=== PATIENT | female | born 1955 | race American Indian/Alaskan Native ===

== ENCOUNTER 2018-08-13 15:41 | Inpatient (IN) | payer MEDICAID, OTHER ==
[2018-08-13] MEDS ORDERED: MORPHINE ONE (15:46)
[2018-08-13] MEDS ORDERED: NACL 0.9% 500 ML 500 ML IV ONE (15:46)
[2018-08-13] MEDS ORDERED: NACL 0.9% 500 ML 500 ML ONE (15:48)
[2018-08-13] MEDS ORDERED: CORDARONE IV ONE ×2 (15:54→17:41)
[2018-08-13] MEDS ORDERED: REGLAN IV ONE (15:54)
[2018-08-13] MEDS ORDERED: PLAVIX PO ONE (15:54)
[2018-08-13] MEDS ORDERED: SODIUM CHLORIDE FLUSH SYRINGE 10 ML IV PRN (15:59)
[2018-08-13] MEDS ORDERED: PROVENTIL IH PRN (15:59)
[2018-08-13] MEDS ORDERED: HEPARIN 10,000 UNITS/10 ML IV ONE (16:00)
[2018-08-13] MEDS ORDERED: HEPARIN/NS 5000 UNIT/500ML(CATH LAB) 1,000 ML IR ONE (16:05)
[2018-08-13] MEDS ORDERED: NITROGLYCERIN SYRINGE 0 ML ONE (16:06)
[2018-08-13] MEDS ORDERED: XYLOCAINE 2% INFILTRATI ONE (16:06)
--- NOTE | 2018-08-13 16:07 | History and Physical Report ---
History of Present Illness Chief complaint: chest pain History of present illness: 63 YO Female with Nicotine Dependence presents to ED for evaluation. Pt is lethargic at time of exam and unable to provide history. Pt history taken from ED staff. As per staff, EMS was notified for complaints of chest pain. Upon arrival, the patient was found to have Unstable Angina. A Code STEMI was called and the patient transported to [facility] for further care and evaluation. Pt seen and evaluated in ED and found to be in severe distress secondary to STEMI. Pt subsequently became unresponsive and was found to be in V-Fib arrest. Pt treated with ACLS protocol with return of perfusing cardiac rhythm. Cardiology team notified, and patient taken urgently to [facility] for intervention. Pulmonary team consulted in ED, and the patient is admitted to ICU, and placed on heparin drip. Past History Past Medical History: other (Nicotine Dependence) Past Surgical History: No surgical history, Other (reviewed) Social history: , smoking Family history: no significant family history (reviewed) Medications and Allergies Allergies Allergy/AdvReac Type Severity Reaction Status Date / Time No Known Allergies Allergy Verified 10/23/15 17:38 Active Meds: Active Medications Albuterol (Proventil) 2.5 mg IH Q3HRT PRN PRN Reason: Shortness Of Breath Heparin Sodium/Sodium Chloride (Heparin/ 0.45% Nacl-25,000 Unit/500 Ml) 25,000 unit in 500 mls @ 0 mls/hr IV TITRATE ARNOLDO; Protocol Sodium Chloride (Nacl 0.9% 500 Ml) 500 mls @ 999 mls/hr IV BOLUS ONE Stop: 08/13/18 16:16 Amiodarone HCl 900 mg/ (Dextrose) 500 mls @ 33.33 mls/hr IV DIRECT ARNOLDO; Protocol Review of Systems ROS unobtainable: due to mental status Exam - Constitutional General appearance: Present: severe distress - EENT Eyes: Present: PERRL, miosis ENT: hearing intact, clear oral mucosa - Neck Neck: Present: supple, normal ROM - Respiratory Respiratory effort: normal, labored Respiratory: bilateral: diminished, rhonchi - Cardiovascular Rhythm: other (tachycardia) Heart Sounds: Present: S1 & S2. Absent: rub, click - Extremities Extremities: pulses symmetrical, No edema Peripheral Pulses: within normal limits - Abdominal General gastrointestinal: Present: soft, non-tender, non-distended, normal bowel sounds Female genitourinary: Present: normal - Integumentary Integumentary: Present: clear, warm, dry - Musculoskeletal Musculoskeletal: generalized weakness - Psychiatric Psychiatric: no appropriate mood/affect, no intact judgment & insight, no memory intact - Neurologic Neurologic: CNII-XII intact, no focal deficits, moves all extremities, no gait normal Results - Labs CBC & Chem 7: 08/13/18 Unknown Assessment and Plan - Patient Problems (1) STEMI (ST elevation myocardial infarction) Status: Acute Qualifiers: Involved coronary artery: other coronary artery Qualified Code(s): I21.29 - ST elevation (STEMI) myocardial infarction involving other sites Plan to address problem: Admit to ICU, Cardiology consulted in ED, serial cardiac enzymes, EKG, telemetry, heparin drip, lipid panel, statin. Pt taken urgently to flue dust laborer for intervention. The high probability of a clinically significant, sudden or life threatening deterioration of the [cardiac,neuro, respiratory] system(s) required my full and direct attention, intervention and personal management. The aggregate critical care time was [65] minutes. This time is in addition to time spent performing reported procedures but includes the following: [x] Data Review and interpretation [x] Patient assessment and monitoring of vital signs [x] Documentation [x] Medication orders and management (2) Cardiac arrest Status: Acute Plan to address problem: Pt treated IAW ACLS protocol, with return of perfusion cardiac rhythm. Cardiology consulted in ED. (3) Encephalopathy Status: Acute Plan to address problem: S/P cardiac arrest, neuro checks, treat stemi, aspiration precautions, fall precautions. (4) Nicotine dependence Status: Acute Qualifiers: Nicotine product type: cigarettes Substance use status: uncomplicated Qualified Code(s): F17.210 - Nicotine dependence, cigarettes, uncomplicated Plan to address problem: Smoking cessation counseling, supportive care. (5) DVT prophylaxis Status: Acute Plan to address problem: SCD to BLE while in bed.
[2018-08-13 16:10] LABS: Hematocrit 38.7 % (30.3-42.9); Hemoglobin 13.3 gm/dl (10.1-14.3); Mean Corpuscular HGB Conc 34 % (30-34); Mean Corpuscular Volume 97 fl (79-97); Platelet Count 288 K/mm3 (140-440); Red Blood Count 3.98 M/mm3 (3.65-5.03); Red Cell Distribution Width 14.4 % (13.2-15.2)
--- NOTE | 2018-08-13 16:16 | Emergency Department Report ---
ED General Adult HPI - General Chief complaint: Chest Pain Stated complaint: POSS STEMI Time Seen by Provider: 08/13/18 15:46 Source: patient, EMS (ems notes not available at time of chart dictation. Verbal report received from EMS), RN notes reviewed Mode of arrival: Stretcher Limitations: Physical Limitation - History of Present Illness Initial comments: This is a 60-year-old female who is brought to the hospital by emergency medical services as a possible code STEMI. Her prehospital EKG was reviewed by myself, and transmitted to the ditching machine operator, Dr. Mix, at 3:30 PM, and we both agreed to activate the catheterization lab for presumed emergency STEMI. Upon arrival to the emergency room, the patient is complaining of chest pain which started early once a day, nausea, diaphoresis and vomiting. The patient denies cocaine use, and denies DVT, pulmonary embolus risk factors. Pain is constant, and doesn't radiate anywhere, and does not appear to have exacerbating or relieving factors. EMS gave aspirin in the field. In the emergency room, while undergoing her primary survey, the patient's rhythm spontaneously converted to ventricular fibrillation, and she was shocked once, with 200 J, and had chest compressions. Patient was pulseless for approximately 10-15 seconds. After the aforementioned interventions, the patient reverted to a normal sinus rhythm, with a repeat EKG that suggested ST elevation myocardial infarction. Discussed this with her covering hospital admitting clerk, Dr. Mix, who recommended amiodarone infusion, push, heparin post, infusion, and Plavix load. Hospital physician, Dr. Louise will admit the patient to the medical service, and discussed the case with the press worker helper, Dr. Smith, who agrees with triage into the intensive care unit. I discussed this with the patient who verbalizes understanding. -: Sudden Location: chest Radiation: non-radiation Quality: burning, stabbing, aching Consistency: constant Improves with: other Worsens with: other Associated Symptoms: chest pain, nausea/vomiting, weakness - Related Data Allergies Allergy/AdvReac Type Severity Reaction Status Date / Time No Known Allergies Allergy Verified 10/23/15 17:38 ED Review of Systems ROS: Stated complaint: POSS STEMI Other details as noted in HPI Constitutional: diaphoresis, malaise Eyes: denies: vision change ENT: denies: epistaxis Respiratory: denies: cough Cardiovascular: chest pain Gastrointestinal: nausea, vomiting Genitourinary: denies: dysuria Musculoskeletal: denies: back pain Skin: denies: lesions Neurological: weakness Psychiatric: anxiety ED Past Medical Hx - Surgical History Additional Surgical History: HYSTERECTOMY - Social History Smoking Status: Current Every Day Smoker Substance Use Type: None ED Physical Exam - General General appearance: alert, anxious, in distress - Head Head exam: Present: atraumatic, normocephalic - Eye Eye exam: Present: normal appearance, EOMI. Absent: nystagmus - ENT ENT exam: Present: normal exam, normal orophraynx, mucous membranes moist, normal external ear exam - Neck Neck exam: Present: normal inspection, full ROM. Absent: tenderness, meningismus - Respiratory Respiratory exam: Present: normal lung sounds bilaterally. Absent: respiratory distress - Cardiovascular Cardiovascular Exam: Present: regular rate, normal rhythm, normal heart sounds. Absent: bradycardia, tachycardia, irregular rhythm, systolic murmur, diastolic murmur, rubs, gallop - GI/Abdominal GI/Abdominal exam: Present: soft. Absent: distended, tenderness, guarding, rebound, rigid, pulsatile mass - Extremities Exam Extremities exam: Present: normal inspection, full ROM, other (2+ pulses noted in the bilateral upper, lower extremities. Compartments soft. No long bony tenderness. The pelvis is stable.). Absent: calf tenderness - Back Exam Back exam: Present: normal inspection, full ROM. Absent: tenderness, CVA tenderness (R), paraspinal tenderness, vertebral tenderness - Neurological Exam Neurological exam: Present: alert, oriented X3, CN II-XII intact, other (Extraocular movements intact. Tongue midline. No facial droop. Facial sensation intact to light touch in the V1, V2, V3 distribution bilaterally. 5 and 5 strength in 4 extremities.. Sensation is intact to light touch in 4 extremities.). Absent: motor sensory deficit - Psychiatric Psychiatric exam: Present: anxious - Skin Skin exam: Present: warm, dry, intact, normal color. Absent: rash ED Medical Decision Making - Lab Data Lab Results 08/13/18 Range/Units Unknown WBC 7.9 (4.5-11.0) K/mm3 RBC 3.98 (3.65-5.03) M/mm3 Hgb 13.3 (10.1-14.3) gm/dl Hct 38.7 (30.3-42.9) % MCV 97 (79-97) fl MCH 33 H (28-32) pg MCHC 34 (30-34) % RDW 14.4 (13.2-15.2) % Plt Count 288 (140-440) K/mm3 Lymph % (Auto) Business Info Consultant Lymph # Business Info Consultant Seg Neutrophils % Business Info Consultant Heart rate currently 66 bpm. Blood pressure 120/70. Saturating at 97% on 2 L of oxygen. Respiratory rate 15-17 breaths per minute Tactile sensation does not appear to be consistent with fever - EKG Data -: EKG Interpreted by Me EKG shows normal: sinus rhythm - EKG Data Interpretation: acute MT 08/13/18 16:16 Sinus rhythm, 66 bpm, normal axis, QTC 399 ms, premature atrial contractions, premature ventricular contractions, ST elevation in the inferior leads, ST depre ssion 1, aVL, consistent with ST elevation myocardial infarction, in the inferior distribution. - Radiology Data Radiology results: image reviewed interpreted by me: X-ray of the chest shows hyperinflated lungs, otherwise no acute disease Critical Care Time: Yes Critical care time in (mins) excluding proc time.: 35 Critical care attestation.: If time is entered above; I have spent that time in minutes in the direct care of this critically ill patient, excluding procedure time. ED Disposition Clinical Impression: STEMI (ST elevation myocardial infarction) Qualifiers: Involved coronary artery: other coronary artery Qualified Code(s): I21.29 - ST elevation (STEMI) myocardial infarction involving other sites Disposition: DC-09 OP ADMIT IP TO THIS HOSP Is pt being admited?: Yes Condition: Critical
[2018-08-13 16:20] LABS: INR 0.87 (0.87-1.13)
[2018-08-13 16:21] LABS: Partial Thromboplastin Time 22.3 Sec. (24.2-36.6)
[2018-08-13] MEDS ORDERED: NACL 0.9% 1000 ML 1,000 ML ONE (16:21)
[2018-08-13] MEDS ORDERED: SUBLIMAZE ONE (16:21)
[2018-08-13] MEDS ORDERED: ZOFRAN ONE (16:21)
[2018-08-13] MEDS: HEPARIN 10,000 UNITS/10 ML ONE ×2 (16:22→16:34)
[2018-08-13 16:28] LABS: BUN/Creatinine Ratio 11; Blood Urea Nitrogen 10 mg/dL (7-17); Calcium 9.4 mg/dL (8.4-10.2); Creatine Kinase MB 1.8 ng/mL (0.0-4.0); Hemolysis Index 19
[2018-08-13] MEDS: CORDARONE 900 MG in D5W 482 ML IV SCH ×2 (16:29→21:55)
[2018-08-13] MEDS ORDERED: HEPARIN/NS 5000 UNIT/500ML(CATH LAB) 500 ML IR ONE (16:33)
[2018-08-13] MEDS ORDERED: INTROPIN DRIP 800 MG/D5W 250 ML 800 MG/250 ML BAG IV ONE (16:35)
--- NOTE | 2018-08-13 16:41 | XRay Report ---
FINAL REPORT EXAM: XR CHEST 1V AP HISTORY: chest pain TECHNIQUE: Frontal chest x-ray. PRIORS: None currently available. FINDINGS: Cardiac silhouette is within normal limits. There is no effusion. There is no pneumothorax. There is no consolidation. There are no suspicious osseous lesions. Scoliosis. IMPRESSION: No acute cardiopulmonary findings.
[2018-08-13] MEDS ORDERED: HEPARIN/ 0.45% NACL-25,000 UNIT/500 ML 25,000 UNIT/500 ML BAG IV SCH (17:00)
[2018-08-13 17:18] LABS: Anisocytosis 1+; Basophils % (Manual) 0 % (0.0-1.8); Macrocytosis 1+; Total Cells Counted 100
[2018-08-13 17:19] LABS: Platelet Estimate Consistent w Auto
[2018-08-13] MEDS ORDERED: ALUM-MAG HYDROX-SIMETH 200-200-20MG/5ML ONE (17:19)
[2018-08-13] MEDS ORDERED: PLAVIX ONE (17:19)
[2018-08-13] MEDS ORDERED: AGGRASTAT DRIP (12.5 MG/250 ML) 12,500 MCG/250 ML BAG IV ONE (17:24)
[2018-08-13] MEDS ORDERED: HEPARIN 10,000 UNITS/10 ML ONE (17:24)
[2018-08-13] MEDS ORDERED: AGGRASTAT DRIP (12.5 MG/250 ML) 12,500 MCG/250 ML BAG IV SCH (18:00)
[2018-08-13] MEDS ORDERED: NACL 0.9% 1000 ML 1,000 ML IV SCH (18:00)
[2018-08-13 19:16] LABS: Creatine Kinase MB 11.6 ng/mL (0.0-4.0)
--- NOTE | 2018-08-13 19:56 | Cardiac Catherization Report ---
CARDIAC CATHETERIZATION INDICATIONS FOR PROCEDURE: The patient is a 63-year-old -[place] female with history of tobacco abuse, who presents to the ER with chest pain, inferior ST elevation, had a VF cardiac arrest in the Emergency Room. This obviously delayed our STEMI protocol. She was successfully resuscitated, started on amiodarone. She was given aspirin. She is brought to the dental laboratory worker in an emergent fashion. Risks, benefits and alternatives were discussed at length. PROCEDURE IN DETAIL: The patient was brought to the catheterization dental laboratory worker in urgent fashion, prepped and draped in sterile fashion, 8 mL of 2% lidocaine was used to anesthetize the right groin. A 7-Scottish hydrophilic sheath was used to cannulate the right femoral vein. A standard 6-Scottish sheath was used to cannulate the right common femoral artery via modified Seldinger technique. She is bradycardic and hypotensive. A balloon tipped temporary venous pacemaker was placed under fluoroscopic guidance into the right ventricular apex, functioning normal. Next, we turned our attention to the left heart catheterization. A JL4 catheter was used to engage the left main. No dampening or ventricularization performed. Cineangiography performed in all projections. JR4 guide was used to cross the aortic valve under fluoroscopic guidance. Left ventriculography performed in 30 BYRNES and 30 PANAMANIAN projections via hand injections. Catheter flushed. Manual pullback performed with continuous pressure monitoring. Next, a JR4 sidehole guide was used to engage the right coronary, which is a small vessel. Angiography was performed in all projections. DATA: There is a left main without significant disease, bifurcates in left anterior descending and left circumflex. The circumflex is diminutive vessel, no significant disease. LAD is a moderate sized vessel, courses through the anterior interventricular groove. There is a 50% proximal and a 25% mid LAD stenosis. No significant stenosis in the diagonal system. Left ventriculography reveals inferior hypokinesis, but preserved ejection fraction of 60%-65%. Right coronary reveals 90% proximal stenosis, 99% distal stenosis, tandem, very small vessel, probably ____ vessel distally. At this time, returning to PCI, heparin given. Abnormal ACT confirmed. Aspirin has already been loaded. We used a [employer] wire to cross the lesion. A 2.0 x 12 balloon to predilate the lesion distally very calcific and complex, stent placed in the 99% distal stenosis. A very distal small dissection is noted. At this point, we turned our attention to the proximal lesion. We direct stented with a 2.5 x 12 [place]. The distal lesion was treated with a 2.25 x 18 Mak drug-eluting stent. This was performed and both stents are well expanded and well opposed. There remains a small distal dissection in the very distal RCA, very small vessel CHET 2 flow into the right posterolateral, CHET 3 flow into the posterior descending. At this point, the patient is clinically stable, chest pain free. STs are resolved. We will give an Aggrastat bolus and I did try to wire the back into the lumen with multiple wires, unable to do I believe the risk outweighs the benefit at this point. She is clinically stable and chest pain free. CONCLUSIONS: 1. Severe multilevel coronary artery disease in the setting of an acute inferior ST elevation myocardial infarction complicated by hypotension, bradycardia and fibrillation arrest. 2. Successful IVUS-guided PCI of 99% distal RCA, placement of Mak 2.25 x 18, excellent final angiographic results, successful PCI of proximal RCA placed in the [place] 2.5 x 12, excellent final angiographic result, very small vessel distally, small dissection. No evidence of perforation. CHET 3 flow is preserved. 4. Moderate nonobstructive disease in left system including 50% proximal and 25% mid left anterior descending. 5. Preserved left ventricular function, estimated 55%-60%. 6. Normal LVEDP. 7. Successful temporary venous pacemaker placement. 8. Successful access of the right femoral vein. At this point, the patient is clinically stable, chest pain free. Single bolus of Aggrastat, Plavix, aspirin, statin therapy, needs smoking cessation. We will keep the pacemaker in overnight. Again, she is chest pain free, electrically and hemodynamically stable, off dopamine, feeling much better. Continue amiodarone drip. Pull arterial sheath once ACT less than 170. We will follow along closely. Bottle And Glass Inspector consultation as well. ADDENDUM I directly supervised the administration of moderate sedation from 4:20 p.m. to 5:30 p.m. with fentanyl and Versed. JOB# [id number] SBM/NTS
[2018-08-13 20:20] LABS: Chol/HDL Ratio 5.92 %
[2018-08-13] MEDS: PEPCID IV SCH (21:46)
--- NOTE | 2018-08-13 23:05 | Consultation ---
REASON FOR CONSULTATION: Advice and opinion regarding chest pain. HISTORY OF PRESENT ILLNESS: The patient is a pleasant 63-year-old -[place]ones[place] female with history of tobacco abuse and hip pain, presents here with chest pain for some 1 hour or so. She was brought to the Emergency Room, had inferior ST elevation, had VF arrest in the Emergency Room, at least 30 minutes of critical care time. She was resuscitated, started on aspirin, heparin and amiodarone. She is alert, awake, following commands, nauseous, hypotensive, diaphoretic. PAST MEDICAL HISTORY: Unknown. PAST SURGICAL HISTORY: Unknown. The patient has not seen a primary doctor in some time. SOCIAL HISTORY: Positive for tobacco abuse, otherwise unknown. FAMILY HISTORY: Noncontributory. PHYSICAL EXAMINATION: VITAL SIGNS: Blood pressure is in the 100 range, heart rates in the 50s and sinus rhythm, O2 sats 99% on room air. GENERAL: This is a middle-aged -Gabonese female in no apparent distress, oriented x 3. HEENT: Sclerae are anicteric. NECK: Supple. No masses, no JVD. CHEST: Clear to auscultation bilaterally. Good air movement. CARDIOVASCULAR: Regular S1, S2. ABDOMEN: Soft, nontender, nondistended. Normoactive bowel sounds in 4 quadrants. No mass or bruits. EXTREMITIES: No cyanosis, clubbing, edema. Good peripheral pulses. SKIN: Intact. No rashes. DATA: EKG as aforementioned. VF arrest, inferior ST elevation prior to this. ASSESSMENT AND PLAN: In summary, the patient is a pleasant 63-year-old -[place]ones[place] female. Inferior ST elevation myocardial infarction complicated by bradycardia and hypotension. VF arrest. STEMI protocol initiated. Heparin, aspirin, amiodarone, Plavix initiated. Urgent cardiac catheterization. Further plans contingent on these results. JOB# [id number] SBM/NTS
[2018-08-13] MEDS: MORPHINE IV PRN (23:17)
[2018-08-14] MEDS: MORPHINE IV PRN ×2 (02:29→11:40)
[2018-08-14] MEDS: SODIUM CHLORIDE FLUSH SYRINGE 10 ML IV SCH ×3 (02:32→21:33)
[2018-08-14 06:12] LABS: Basophils % (Auto) 0.4 % (0.0-1.8); Eosinophils % (Auto) 0.1 % (0.0-4.3); Hematocrit 36.4 % (30.3-42.9); Hemoglobin 12.5 gm/dl (10.1-14.3); Lymphocytes % (Auto) 10.9 % (13.4-35.0); Mean Corpuscular HGB Conc 34 % (30-34); Mean Corpuscular Volume 97 fl (79-97); Monocytes # (Auto) 0.4 K/mm3 (0.0-0.8); Monocytes % (Auto) 4.4 % (0.0-7.3); Red Blood Count 3.75 M/mm3 (3.65-5.03); Red Cell Distribution Width 14.1 % (13.2-15.2)
[2018-08-14 06:18] LABS: Platelet Count 216 K/mm3 (140-440)
[2018-08-14 06:43] LABS: Creatine Kinase MB 90.6 ng/mL (0.0-4.0)
[2018-08-14 06:46] LABS: BUN/Creatinine Ratio 18; Blood Urea Nitrogen 9 mg/dL (7-17); Calcium 7.9 mg/dL (8.4-10.2); Hemolysis Index 164
[2018-08-14] MEDS ORDERED: ZOFRAN ONE (08:36)
[2018-08-14] MEDS: PLAVIX PO SCH ×2 (08:43→11:50)
[2018-08-14] MEDS: PEPCID IV SCH ×3 (08:44→21:33)
[2018-08-14] MEDS: ECOTRIN PO SCH ×2 (08:49→11:49)
--- NOTE | 2018-08-14 11:23 | Progress Note ---
Assessment and Plan 63yo AAF: 1. Acute inferior STEMI complicated by VF arrest/hypotension/bradycardia * s/p primary pci of prox and distal rca w yue * s/p temp venous pcm 2. Tobacco abuse 3. Right hip arthritis Clinically doing well. Plan: I removed the pcm and venous sheath this am cont w/ current meds (asa/plavix/statin) Bp/hr borderline - hold off on bb/leandro for now check tte Anticipate d/c in 1-2 days Smoking cessation discussed at length Talked to family - 1st degree relative screening recommended Thanks Subjective Date of service: 08/14/18 Interval history: feels great Objective Vital Signs Temp Pulse Pulse Resp Resp BP Pulse Ox 08/14/18 09:00 60 22 119/71 98 08/14/18 08:31 69 20 124/67 98 08/14/18 08:27 98 08/14/18 08:00 98.0 F 77 59 L 14 105/69 99 08/14/18 07:31 68 17 114/59 98 08/14/18 07:01 57 L 14 125/56 98 08/14/18 06:30 55 L 9 L 133/64 99 08/14/18 06:00 57 L 16 114/71 98 08/14/18 05:30 57 L 21 111/64 98 08/14/18 05:00 57 L 19 113/68 97 08/14/18 04:30 98.2 F 61 21 119/69 97 08/14/18 04:00 60 59 L 18 107/66 96 08/14/18 03:30 59 L 16 118/65 98 08/14/18 03:00 59 L 17 117/66 98 08/14/18 02:30 61 15 116/75 99 08/14/18 02:00 58 L 21 117/72 98 08/14/18 01:31 58 L 19 111/69 99 08/14/18 01:00 58 L 20 106/71 98 08/14/18 00:50 57 L 20 115/69 100 08/14/18 00:40 57 L 20 110/70 97 08/14/18 00:30 58 L 17 110/72 97 08/14/18 00:20 59 L 18 112/67 97 08/14/18 00:10 59 L 18 114/68 97 08/14/18 00:00 59 L 59 L 19 115/74 97 08/13/18 23:50 58 L 19 121/68 97 08/13/18 23:40 58 L 18 105/67 97 08/13/18 23:30 60 20 107/65 98 08/13/18 23:20 63 20 116/70 97 08/13/18 23:17 19 08/13/18 23:10 55 L 15 120/69 98 08/13/18 23:00 57 L 18 106/62 98 08/13/18 22:50 54 L 15 108/63 97 08/13/18 22:40 56 L 20 107/60 100 08/13/18 22:30 53 L 11 L 96/63 99 08/13/18 22:21 53 L 15 98/57 100 08/13/18 22:11 54 L 17 98/57 100 08/13/18 22:00 58 L 16 22 98/57 98 08/13/18 21:51 61 13 105/65 98 08/13/18 21:41 60 13 105/65 100 08/13/18 21:30 67 13 105/65 99 08/13/18 21:21 60 15 95/64 99 08/13/18 21:11 61 13 95/64 99 08/13/18 21:01 60 20 97 08/13/18 20:51 67 20 96 08/13/18 20:41 64 14 97 08/13/18 20:31 62 22 97 08/13/18 20:21 63 20 97 08/13/18 20:10 61 19 97 08/13/18 20:00 97.6 F 61 18 99 - Labs and Meds Cardiac Enzymes 08/13/18 08/13/18 08/13/18 Range/Units 18:34 21:45 Unknown CK-MB (CK-2) 11.6 H 35.0 H 1.8 (0.0-4.0) ng/mL 08/14/18 Range/Units 05:00 CK-MB (CK-2) 90.6 H (0.0-4.0) ng/mL Coagulation 08/13/18 Range/Units Unknown PT 12.4 (12.2-14.9) Sec. INR 0.87 (0.87-1.13) APTT 22.3 L (24.2-36.6) Sec. Lipids 08/13/18 Range/Units 18:34 Triglycerides 58 (2-149) mg/dL Cholesterol 231 H (50-199) mg/dL HDL Cholesterol 39 L (40-59) mg/dL Cholesterol/HDL Ratio 5.92 % CBC 08/13/18 08/14/18 Range/Units Unknown 05:00 WBC 7.9 9.1 (4.5-11.0) K/mm3 RBC 3.98 3.75 (3.65-5.03) M/mm3 Hgb 13.3 12.5 (10.1-14.3) gm/dl Hct 38.7 36.4 (30.3-42.9) % Plt Count 288 216 (140-440) K/mm3 Lymph # [facility] 1.0 L [place] # 0.4 (0.0-0.8) K/mm3 Eos # 0.0 (0.0-0.4) K/mm3 Baso # 0.0 (0.0-0.1) K/mm3 Comprehensive Metabolic Panel 08/13/18 08/14/18 Range/Units Unknown 05:00 Sodium 139 136 L (137-145) mmol/L Potassium 3.9 4.9 D (3.6-5.0) mmol/L Chloride 98.6 103.7 (98-107) mmol/L Carbon Dioxide 26 21 L (22-30) mmol/L BUN 10 9 (7-17) mg/dL Creatinine 0.9 0.5 L (0.7-1.2) mg/dL Glucose 119 H 129 H (65-100) mg/dL Calcium 9.4 7.9 L D (8.4-10.2) mg/dL
[2018-08-14] MEDS ORDERED: AFLURIA QUAD 2018-2019 SYRINGE IM ONE (12:00)
[2018-08-14] MEDS ORDERED: PNEUMOVAX 23 IM ONE (12:00)
[2018-08-14] MEDS: LIDODERM 5% TD SCH (12:14)
--- NOTE | 2018-08-14 12:19 | Progress Note ---
Assessment and Plan Assessment and plan: Patient is a 63 YO Female with Nicotine Dependence presents to ED for evaluation. Pt is lethargic at time of exam and unable to provide history. Pt history taken from ED staff. As per staff, EMS was notified for complaints of chest pain. Upon arrival, the patient was found to have Unstable Angina. A Code STEMI was called and the patient transported to [facility] for further care and evaluation. Pt seen and evaluated in ED and found to be in severe distress secondary to STEMI. Pt subsequently became unresponsive and was found to be in V-Fib arrest. Pt treated with ACLS protocol with return of perfusing cardiac rhythm. Cardiology team notified, and patient taken urgently to [facility] for intervention. Pulmonary team consulted in ED, and the patient is admitted to ICU, and placed on heparin drip. (1) STEMI (ST elevation myocardial infarction) Status: Acute Qualifiers: Involved coronary artery: other coronary artery Qualified Code(s): I21.29 - ST elevation (STEMI) myocardial infarction involving other sites Plan to address problem: S/P primary pci of prox and distal rca w yue PER cardiology Continue aggressive cardiac and risk modification management including tobacco u se and discussed with the patient in detail (2) Cardiac arrest Status: Acute Plan to address problem: Pt treated IAW ACLS protocol, with return of perfusion cardiac rhythm. Cardiology consulted in ED. (3) Bradycardia S/P PCM- removed todaY CONTINUE TO HOLD bb/leandro PER CARDIOLOGY TTE pending (4)Encephalopathy Status: Acute Plan to address problem: S/P cardiac arrest, neuro checks, treat stemi, aspiration precautions, fall precautions. (5) Nicotine dependence Status: Acute Qualifiers: Nicotine product type: cigarettes Substance use status: uncomplicated Qualified Code(s): F17.210 - Nicotine dependence, cigarettes, uncomplicated Plan to address problem: Smoking cessation counseling, supportive care. (6) DVT prophylaxis Status: Acute Plan to address problem: SCD to BLE while in bed. The high probability of a clinically significant, sudden or life threatening deterioration of the [cardiac,neuro, respiratory] system(s) required my full and direct attention, intervention and personal management. The aggregate critical care time was [65] minutes. This time is in addition to time spent performing reported procedures but includes the following: [x] Data Review and interpretation [x] Patient assessment and monitoring of vital signs [x] Documentation [x] Medication orders and management History Interval history: Patient seen and examined, doing well overnight following cardiac cath. Temporally pace maker removed Hospitalist Physical - Physical exam Narrative exam: VITAL SIGNS: Reviewed. GENERAL: The patient appeared well nourished and normally developed. Vital signs as documented. HEAD: No signs of head trauma. EYES: Pupils are equal. Extraocular motions intact. EARS: Hearing grossly intact. MOUTH: Oropharynx is normal. NECK: No adenopathy, no JVD. CHEST: Chest with clear breath sounds bilaterally. No wheezes, rales, or rhonchi. CARDIAC: Regular rate and rhythm. S1 and S2, without murmurs, gallops, or rubs. VASCULAR: No Edema. Peripheral pulses normal and equal in all extremities. ABDOMEN: Soft, without detectable tenderness. No sign of distention. No rebound or guarding, and no masses palpated. Bowel Sounds normal. MUSCULOSKELETAL: Good range of motion of all major joints. Extremities without clubbing, cyanosis or edema. NEUROLOGIC EXAM: Alert and oriented x 3. No focal sensory or strength deficits. Speech normal. Follows commands. PSYCHIATRIC: Mood normal. SKIN: No rash or lesions. - Constitutional Vitals: Temp Pulse Resp BP Pulse Ox 98.0 F 60 22 119/71 98 08/14/18 12:00 08/14/18 09:00 08/14/18 09:00 08/14/18 09:00 08/14/18 09:00 General appearance: Present: severe distress Results - Labs CBC & Chem 7: 08/15/18 04:56 08/14/18 05:00 Labs: Laboratory Last Values WBC 9.1 K/mm3 (4.5-11.0) 08/14/18 05:00 RBC 3.75 M/mm3 (3.65-5.03) 08/14/18 05:00 Hgb 12.5 gm/dl (10.1-14.3) 08/14/18 05:00 Hct 36.4 % (30.3-42.9) 08/14/18 05:00 MCV 97 fl (79-97) 08/14/18 05:00 MCH 33 pg (28-32) H 08/14/18 05:00 MCHC 34 % (30-34) 08/14/18 05:00 RDW 14.1 % (13.2-15.2) 08/14/18 05:00 Plt Count 216 K/mm3 (140-440) 08/14/18 05:00 Lymph % (Auto) 10.9 % (13.4-35.0) L 08/14/18 05:00 Coleman % (Auto) 4.4 % (0.0-7.3) 08/14/18 05:00 Eos % (Auto) 0.1 % (0.0-4.3) 08/14/18 05:00 Baso % (Auto) 0.4 % (0.0-1.8) 08/14/18 05:00 Lymph # 1.0 K/mm3 (1.2-5.4) L 08/14/18 05:00 Coleman # 0.4 K/mm3 (0.0-0.8) 08/14/18 05:00 Eos # 0.0 K/mm3 (0.0-0.4) 08/14/18 05:00 Baso # 0.0 K/mm3 (0.0-0.1) 08/14/18 05:00 Add Manual Diff Complete 08/13/18 Unknown Total Counted 100 08/13/18 Unknown Seg Neutrophils % 84.2 % (40.0-70.0) H 08/14/18 05:00 Seg Neuts % (Manual) 39.0 % (40.0-70.0) L 08/13/18 Unknown Band Neutrophils % 0 % 08/13/18 Unknown Lymphocytes % (Manual) 49.0 % (13.4-35.0) H 08/13/18 Unknown Reactive Lymphs % (Man) 0 % 08/13/18 Unknown Monocytes % (Manual) 7.0 % (0.0-7.3) 08/13/18 Unknown Eosinophils % (Manual) 5.0 % (0.0-4.3) H 08/13/18 Unknown Basophils % (Manual) 0 % (0.0-1.8) 08/13/18 Unknown Metamyelocytes % 0 % 08/13/18 Unknown Myelocytes % 0 % 08/13/18 Unknown Promyelocytes % 0 % 08/13/18 Unknown Blast Cells % 0 % 08/13/18 Unknown Nucleated RBC % Not Reportable 08/13/18 Unknown Seg Neutrophils # 7.7 K/mm3 (1.8-7.7) 08/14/18 05:00 Seg Neutrophils # Man 3.1 K/mm3 (1.8-7.7) 08/13/18 Unknown Band Neutrophils # 0.0 K/mm3 08/13/18 Unknown Lymphocytes # (Manual) 3.9 K/mm3 (1.2-5.4) 08/13/18 Unknown Abs React Lymphs (Man) 0.0 K/mm3 08/13/18 Unknown Monocytes # (Manual) 0.6 K/mm3 (0.0-0.8) 08/13/18 Unknown Eosinophils # (Manual) 0.4 K/mm3 (0.0-0.4) 08/13/18 Unknown Basophils # (Manual) 0.0 K/mm3 (0.0-0.1) 08/13/18 Unknown Metamyelocytes # 0.0 K/mm3 08/13/18 Unknown Myelocytes # 0.0 K/mm3 08/13/18 Unknown Promyelocytes # 0.0 K/mm3 08/13/18 Unknown Blast Cells # 0.0 K/mm3 08/13/18 Unknown WBC Morphology Not Reportable 08/13/18 Unknown Hypersegmented Neuts Not Reportable 08/13/18 Unknown Hyposegmented Neuts Not Reportable 08/13/18 Unknown Hypogranular Neuts Not Reportable 08/13/18 Unknown Smudge Cells Not Reportable 08/13/18 Unknown Toxic Granulation Not Reportable 08/13/18 Unknown Toxic Vacuolation Not Reportable 08/13/18 Unknown Dohle Bodies Not Reportable 08/13/18 Unknown Pelger-Huet Anomaly Not Reportable 08/13/18 Unknown Oscar Rods Not Reportable 08/13/18 Unknown Platelet Estimate Consistent w auto 08/13/18 Unknown Clumped Platelets Not Reportable 08/13/18 Unknown Plt Clumps, EDTA Not Reportable 08/13/18 Unknown Large Platelets Not Reportable 08/13/18 Unknown Giant Platelets Not Reportable 08/13/18 Unknown Platelet Satelliting Not Reportable 08/13/18 Unknown Plt Morphology Comment Not Reportable 08/13/18 Unknown RBC Morphology Not Reportable 08/13/18 Unknown Dimorphic RBCs Not Reportable 08/13/18 Unknown Polychromasia Not Reportable 08/13/18 Unknown Hypochromasia Not Reportable 08/13/18 Unknown Poikilocytosis Not Reportable 08/13/18 Unknown Anisocytosis 1+ 08/13/18 Unknown Microcytosis Not Reportable 08/13/18 Unknown Macrocytosis 1+ 08/13/18 Unknown Spherocytes Not Reportable 08/13/18 Unknown Pappenheimer Bodies Not Reportable 08/13/18 Unknown Sickle Cells Not Reportable 08/13/18 Unknown Target Cells Not Reportable 08/13/18 Unknown Tear Drop Cells Not Reportable 08/13/18 Unknown Ovalocytes Not Reportable 08/13/18 Unknown Helmet Cells Not Reportable 08/13/18 Unknown [place] Bodies Not Reportable 08/13/18 Unknown [place] Rings Not Reportable 08/13/18 Unknown Doreen Cells Not Reportable 08/13/18 Unknown Bite Cells Not Reportable 08/13/18 Unknown Crenated Cell Not Reportable 08/13/18 Unknown Elliptocytes Not Reportable 08/13/18 Unknown Acanthocytes (Spur) Not Reportable 08/13/18 Unknown Rouleaux Not Reportable 08/13/18 Unknown Hemoglobin C Crystals Not Reportable 08/13/18 Unknown Schistocytes Not Reportable 08/13/18 Unknown Malaria parasites Not Reportable 08/13/18 Unknown Lamonte Bodies Not Reportable 08/13/18 Unknown Hem Pathologist Commnt No 08/13/18 Unknown PT 12.4 Sec. (12.2-14.9) 08/13/18 Unknown INR 0.87 (0.87-1.13) 08/13/18 Unknown APTT 22.3 Sec. (24.2-36.6) L 08/13/18 Unknown Activated Clotting Time 164 (74-137) H 08/13/18 21:32 Sodium 136 mmol/L (137-145) L 08/14/18 05:00 Potassium 4.9 mmol/L (3.6-5.0) D 08/14/18 05:00 Chloride 103.7 mmol/L (98-107) 08/14/18 05:00 Carbon Dioxide 21 mmol/L (22-30) L 08/14/18 05:00 Anion Gap 16 mmol/L 08/14/18 05:00 BUN 9 mg/dL (7-17) 08/14/18 05:00 Creatinine 0.5 mg/dL (0.7-1.2) L 08/14/18 05:00 Estimated GFR > 60 ml/min 08/14/18 05:00 BUN/Creatinine Ratio 18 % 08/14/18 05:00 Glucose 129 mg/dL (65-100) H 08/14/18 05:00 Calcium 7.9 mg/dL (8.4-10.2) L D 08/14/18 05:00 Total Creatine Kinase 835 units/L (30-135) H 08/14/18 05:00 CK-MB (CK-2) 90.6 ng/mL (0.0-4.0) H 08/14/18 05:00 CK-MB (CK-2) Rel Index 10.8 (0-4) H 08/14/18 05:00 Troponin T 0.363 ng/mL (0.00-0.029) H* D 08/14/18 05:00 Triglycerides 58 mg/dL (2-149) 08/13/18 18:34 Cholesterol 231 mg/dL (50-199) H 08/13/18 18:34 LDL Cholesterol Direct 201 mg/dL (50-130) H 08/13/18 18:34 HDL Cholesterol 39 mg/dL (40-59) L 08/13/18 18:34 Cholesterol/HDL Ratio 5.92 % 08/13/18 18:34 Blood Type A POSITIVE 08/13/18 18:34 Antibody Screen Negative 08/13/18 18:34
[2018-08-14] MEDS ORDERED: ZOFRAN IV PRN (12:20)
--- NOTE | 2018-08-14 17:57 | Consultation ---
History of Present Illness Consult date: 08/14/18 Requesting physician: MEKHI LOPEZ Reason for consult: other (STEMI) History of present illness: PULMONARY/CCM CONSULT NOTE (Full dictation # [id number]) Please see dictated notes for full details Past History Past Medical History: other (Nicotine Dependence) Past Surgical History: No surgical history, Other (reviewed) Social history: , smoking Family history: no significant family history (reviewed) Medications and Allergies Allergies Allergy/AdvReac Type Severity Reaction Status Date / Time No Known Allergies Allergy Verified 10/23/15 17:38 Home Medications Medication Instructions Recorded Confirmed Last Taken Type Naproxen Sodium ER 50 mg PO BID 08/13/18 08/13/18 Unknown History traMADol ER 100 MG 100 mg PO Q6H PRN 08/13/18 08/13/18 2 Months Ago History ~06/12/18 100 Active Meds: Active Medications Albuterol (Proventil) 2.5 mg IH Q3HRT PRN PRN Reason: Shortness Of Breath Aspirin (Ecotrin) 325 mg PO QDAY [facility] Last Admin: 08/14/18 11:49 Dose: Not Given Documented by: Atorvastatin Calcium (Lipitor) 80 mg PO QHS [facility] Last Admin: 08/13/18 21:45 Dose: 80 mg Documented by: Clopidogrel Bisulfate (Plavix) 75 mg PO QDAY [facility] Last Admin: 08/14/18 11:50 Dose: Not Given Documented by: Famotidine (Pepcid) 20 mg IV BID [facility] Last Admin: 08/14/18 11:50 Dose: Not Given Documented by: Amiodarone HCl 900 mg/ (Dextrose) 500 mls @ 33.33 mls/hr IV DIRECT ARNOLDO; Protocol Last Admin: 08/13/18 21:55 Dose: 0.5 mg/min, 16.67 mls/hr Documented by: Sodium Chloride (Nacl 0.9% 1000 Ml) 1,000 mls @ 75 mls/hr IV DIRECT ARNOLDO Lidocaine (Lidoderm 5%) 4 each TD QDAY [facility] Last Admin: 08/14/18 12:14 Dose: 4 each Documented by: Morphine Sulfate (Morphine) 2 mg IV Q4H PRN PRN Reason: Pain, Moderate (4-6) Last Admin: 08/14/18 11:40 Dose: 2 mg Documented by: Ondansetron HCl (Zofran) 4 mg IV Q8H PRN PRN Reason: Nausea And Vomiting Sodium Chloride (Sodium Chloride Flush Syringe 10 Ml) 10 ml IV BID ARNOLDO Last Admin: 08/14/18 11:50 Dose: 10 ml Documented by: Sodium Chloride (Sodium Chloride Flush Syringe 10 Ml) 10 ml IV PRN PRN PRN Reason: LINE FLUSH Physical Examination Vital signs: Vital Signs Temp Pulse Resp Pulse Ox 97.6 F 61 18 99 08/13/18 20:00 08/13/18 20:00 08/13/18 20:00 08/13/18 20:00 Results - Laboratory Findings CBC and BMP: 08/15/18 04:56 08/14/18 05:00 PT/INR, D-dimer PT 12.4 Sec. (12.2-14.9) 08/13/18 Unknown INR 0.87 (0.87-1.13) 08/13/18 Unknown Abnormal lab findings: Abnormal Labs 08/13/18 08/13/18 08/13/18 18:34 19:33 21:32 MCH Lymph % (Auto) Lymph # Seg Neutrophils % Seg Neuts % (Manual) Lymphocytes % (Manual) Eosinophils % (Manual) APTT Activated Clotting Time 202 H 164 H Sodium Carbon Dioxide Creatinine Glucose Calcium Total Creatine Kinase 191 H CK-MB (CK-2) 11.6 H CK-MB (CK-2) Rel Index 6.0 H Troponin T 0.127 H* D Cholesterol 231 H LDL Cholesterol Direct 201 H HDL Cholesterol 39 L 08/13/18 08/13/18 08/13/18 21:45 Unknown Unknown MCH 33 H Lymph % (Auto) Lymph # Seg Neutrophils % Seg Neuts % (Manual) 39.0 L Lymphocytes % (Manual) 49.0 H Eosinophils % (Manual) 5.0 H APTT 22.3 L Activated Clotting Time Sodium Carbon Dioxide Creatinine Glucose Calcium Total Creatine Kinase 354 H CK-MB (CK-2) 35.0 H CK-MB (CK-2) Rel Index 9.8 H Troponin T 0.255 H* D Cholesterol LDL Cholesterol Direct HDL Cholesterol 08/13/18 08/14/18 08/14/18 Unknown 05:00 05:00 MCH 33 H Lymph % (Auto) 10.9 L Lymph # 1.0 L Seg Neutrophils % 84.2 H Seg Neuts % (Manual) Lymphocytes % (Manual) Eosinophils % (Manual) APTT Activated Clotting Time Sodium 136 L Carbon Dioxide 21 L Creatinine 0.5 L Glucose 119 H 129 H Calcium 7.9 L D Total Creatine Kinase 835 H CK-MB (CK-2) 90.6 H CK-MB (CK-2) Rel Index 10.8 H Troponin T 0.363 H* D Cholesterol LDL Cholesterol Direct HDL Cholesterol
[2018-08-15 05:40] LABS: Hemoglobin 11.7 gm/dl (10.1-14.3)
[2018-08-15] MEDS ORDERED: VASELINE LIP THERAPY TP PRN (08:42)
[2018-08-15] MEDS: PLAVIX PO SCH (09:13)
[2018-08-15] MEDS: ECOTRIN PO SCH (09:13)
[2018-08-15] MEDS: SODIUM CHLORIDE FLUSH SYRINGE 10 ML IV SCH ×2 (09:14→21:44)
[2018-08-15] MEDS: PEPCID IV SCH (09:14)
[2018-08-15] MEDS: LIDODERM 5% TD SCH (09:14)
--- NOTE | 2018-08-15 14:45 | Progress Note ---
Assessment and Plan 63yo AAF: 1. Acute inferior STEMI complicated by VF arrest/hypotension/bradycardia * s/p primary pci of prox and distal rca w yue * s/p temp venous pcm 2. Tobacco abuse 3. Right hip arthritis Clinically doing well. Plan: Initiate BB. Cont ASA, plavix, lipitor. F/u echo. currently stable cardiac status. pt may tx out of CCU to telemetry from cardiology standpoint. likely d/c home in AM. The patient has been seen in conjunction with Dr. Ramires who agrees with the assessment and plan of care. Subjective Date of service: 08/15/18 Principal diagnosis: STEMI Interval history: pt resting in bed, no current cardiac complaints. Objective Last Vital Signs Temp 99.3 F 08/15/18 04:00 Pulse 72 08/15/18 12:00 Resp 22 08/15/18 12:00 BP 131/77 08/15/18 12:00 Pulse Ox 98 08/15/18 12:00 - Physical Examination General: No Apparent Distress HEENT: Positive: PERRL, Normocephaly, Mucus Membranes Moist Neck: Positive: neck supple, trachea midline Cardiac: Positive: Reg Rate and Rhythm, S1/S2 Lungs: Positive: clear to auscultation Neuro: Positive: Grossly Intact Abdomen: Positive: Soft. Negative: Tender Skin: Negative: Rash, Wound Musculoskeletal: No Pain Extremities: Absent: edema - Labs and Meds CBC 08/15/18 Range/Units 04:56 Hgb 11.7 (10.1-14.3) gm/dl Hct 33.0 (30.3-42.9) % Plt Count 189 (140-440) K/mm3 - Imaging and Cardiology EKG: report reviewed, image reviewed Echo: pending Cardiac cath: report reviewed - Telemetry EKG Rhythm: Sinus Rhythm
--- NOTE | 2018-08-15 15:36 | Progress Note ---
Assessment and Plan Assessment and plan: Patient is a 63 YO Female with Nicotine Dependence presents to ED for evaluation. Pt is lethargic at time of exam and unable to provide history. Pt history taken from ED staff. As per staff, EMS was notified for complaints of chest pain. Upon arrival, the patient was found to have Unstable Angina. A Code STEMI was called and the patient transported to [facility] for further care and evaluation. Pt seen and evaluated in ED and found to be in severe distress secondary to STEMI. Pt subsequently became unresponsive and was found to be in V-Fib arrest. Pt treated with ACLS protocol with return of perfusing cardiac rhythm. Cardiology team notified, and patient taken urgently to [facility] for intervention. Pulmonary team consulted in ED, and the patient is admitted to ICU, and placed on heparin drip. Patient will successfully taken to the cardiac veterinarian laboratory animal care and is status post PCI of the proximal and distal RCA with YUE per documentation from cardiology. Patient also had bradycardia and was placed temporarily on pacemaker which was removed the following day. Echocardiogram was ordered and is still pending the repeat. Anticipate the patient to the discharge in a.m. if doing well extensive discussion was had with patient about tobacco use. 15 minutes was spent on this patient verbalized understanding. (1) STEMI (ST elevation myocardial infarction) Status: Acute Qualifiers: Involved coronary artery: other coronary artery Qualified Code(s): I21.29 - ST elevation (STEMI) myocardial infarction involving other sites Plan to address problem: S/P primary pci of prox and distal rca w yue PER cardiology Continue aggressive cardiac and risk modification management including tobacco use and discussed with the patient in detail (2) Cardiac arrest Status: Acute Plan to address problem: Pt treated IAW ACLS protocol, with return of perfusion cardiac rhythm. Cardiology consulted in ED. (3) Bradycardia S/P PCM- Started on BB TTE pending (4)Encephalopathy Status: Acute Plan to address problem: S/P cardiac arrest, neuro checks, treat stemi, aspiration precautions, fall precautions. (5) Nicotine dependence Status: Acute Qualifiers: Nicotine product type: cigarettes Substance use status: uncomplicated Qualified Code(s): F17.210 - Nicotine dependence, cigarettes, uncomplicated Plan to address problem: Smoking cessation counseling, supportive care. (6) DVT prophylaxis Status: Acute Plan to address problem: SCD to BLE while in bed. Anticipate discharge in am and to follow with Cardiology and also cardiac rehab History Interval history: Patient seen and examined, continues doing well following cardiac catheterization complaints today no chest pain. Hospitalist Physical - Physical exam Narrative exam: VITAL SIGNS: Reviewed. GENERAL: The patient appeared well nourished and normally developed. Vital signs as documented. HEAD: No signs of head trauma. EYES: Pupils are equal. Extraocular motions intact. EARS: Hearing grossly intact. MOUTH: Oropharynx is normal. NECK: No adenopathy, no JVD. CHEST: Chest with clear breath sounds bilaterally. No wheezes, rales, or rhonchi. CARDIAC: Regular rate and rhythm. S1 and S2, without murmurs, gallops, or rubs. VASCULAR: No Edema. Peripheral pulses normal and equal in all extremities. ABDOMEN: Soft, without detectable tenderness. No sign of distention. No rebound or guarding, and no masses palpated. Bowel Sounds normal. MUSCULOSKELETAL: Good range of motion of all major joints. Extremities without clubbing, cyanosis or edema. NEUROLOGIC EXAM: Alert and oriented x 3. No focal sensory or strength deficits. Speech normal. Follows commands. PSYCHIATRIC: Mood normal. SKIN: No rash or lesions. - Constitutional Vitals: Temp Pulse Resp BP Pulse Ox 96.4 F L 82 24 144/83 100 08/15/18 15:14 08/15/18 14:01 08/15/18 14:01 08/15/18 14:01 08/15/18 14:01 General appearance: Present: severe distress Results - Labs CBC & Chem 7: 08/15/18 04:56 08/14/18 05:00 Labs: Laboratory Last Values WBC 9.1 K/mm3 (4.5-11.0) 08/14/18 05:00 RBC 3.75 M/mm3 (3.65-5.03) 08/14/18 05:00 Hgb 11.7 gm/dl (10.1-14.3) 08/15/18 04:56 Hct 33.0 % (30.3-42.9) 08/15/18 04:56 MCV 97 fl (79-97) 08/14/18 05:00 MCH 33 pg (28-32) H 08/14/18 05:00 MCHC 34 % (30-34) 08/14/18 05:00 RDW 14.1 % (13.2-15.2) 08/14/18 05:00 Plt Count 189 K/mm3 (140-440) 08/15/18 04:56 Lymph % (Auto) 10.9 % (13.4-35.0) L 08/14/18 05:00 [place] % (Auto) 4.4 % (0.0-7.3) 08/14/18 05:00 Eos % (Auto) 0.1 % (0.0-4.3) 08/14/18 05:00 Baso % (Auto) 0.4 % (0.0-1.8) 08/14/18 05:00 Lymph # 1.0 K/mm3 (1.2-5.4) L 08/14/18 05:00 [place] # 0.4 K/mm3 (0.0-0.8) 08/14/18 05:00 Eos # 0.0 K/mm3 (0.0-0.4) 08/14/18 05:00 Baso # 0.0 K/mm3 (0.0-0.1) 08/14/18 05:00 Add Manual Diff Complete 08/13/18 Unknown Total Counted 100 08/13/18 Unknown Seg Neutrophils % 84.2 % (40.0-70.0) H 08/14/18 05:00 Seg Neuts % (Manual) 39.0 % (40.0-70.0) L 08/13/18 Unknown Band Neutrophils % 0 % 08/13/18 Unknown Lymphocytes % (Manual) 49.0 % (13.4-35.0) H 08/13/18 Unknown Reactive Lymphs % (Man) 0 % 08/13/18 Unknown Monocytes % (Manual) 7.0 % (0.0-7.3) 08/13/18 Unknown Eosinophils % (Manual) 5.0 % (0.0-4.3) H 08/13/18 Unknown Basophils % (Manual) 0 % (0.0-1.8) 08/13/18 Unknown Metamyelocytes % 0 % 08/13/18 Unknown Myelocytes % 0 % 08/13/18 Unknown Promyelocytes % 0 % 08/13/18 Unknown Blast Cells % 0 % 08/13/18 Unknown Nucleated RBC % Not Reportable 08/13/18 Unknown Seg Neutrophils # 7.7 K/mm3 (1.8-7.7) 08/14/18 05:00 Seg Neutrophils # Man 3.1 K/mm3 (1.8-7.7) 08/13/18 Unknown Band Neutrophils # 0.0 K/mm3 08/13/18 Unknown Lymphocytes # (Manual) 3.9 K/mm3 (1.2-5.4) 08/13/18 Unknown Abs React Lymphs (Man) 0.0 K/mm3 08/13/18 Unknown Monocytes # (Manual) 0.6 K/mm3 (0.0-0.8) 08/13/18 Unknown Eosinophils # (Manual) 0.4 K/mm3 (0.0-0.4) 08/13/18 Unknown Basophils # (Manual) 0.0 K/mm3 (0.0-0.1) 08/13/18 Unknown Metamyelocytes # 0.0 K/mm3 08/13/18 Unknown Myelocytes # 0.0 K/mm3 08/13/18 Unknown Promyelocytes # 0.0 K/mm3 08/13/18 Unknown Blast Cells # 0.0 K/mm3 08/13/18 Unknown WBC Morphology Not Reportable 08/13/18 Unknown Hypersegmented Neuts Not Reportable 08/13/18 Unknown Hyposegmented Neuts Not Reportable 08/13/18 Unknown Hypogranular Neuts Not Reportable 08/13/18 Unknown Smudge Cells Not Reportable 08/13/18 Unknown Toxic Granulation Not Reportable 08/13/18 Unknown Toxic Vacuolation Not Reportable 08/13/18 Unknown Dohle Bodies Not Reportable 08/13/18 Unknown Pelger-Huet Anomaly Not Reportable 08/13/18 Unknown Oscar Rods Not Reportable 08/13/18 Unknown Platelet Estimate Consistent w auto 08/13/18 Unknown Clumped Platelets Not Reportable 08/13/18 Unknown Plt Clumps, EDTA Not Reportable 08/13/18 Unknown Large Platelets Not Reportable 08/13/18 Unknown Giant Platelets Not Reportable 08/13/18 Unknown Platelet Satelliting Not Reportable 08/13/18 Unknown Plt Morphology Comment Not Reportable 08/13/18 Unknown RBC Morphology Not Reportable 08/13/18 Unknown Dimorphic RBCs Not Reportable 08/13/18 Unknown Polychromasia Not Reportable 08/13/18 Unknown Hypochromasia Not Reportable 08/13/18 Unknown Poikilocytosis Not Reportable 08/13/18 Unknown Anisocytosis 1+ 08/13/18 Unknown Microcytosis Not Reportable 08/13/18 Unknown Macrocytosis 1+ 08/13/18 Unknown Spherocytes Not Reportable 08/13/18 Unknown Pappenheimer Bodies Not Reportable 08/13/18 Unknown Sickle Cells Not Reportable 08/13/18 Unknown Target Cells Not Reportable 08/13/18 Unknown Tear Drop Cells Not Reportable 08/13/18 Unknown Ovalocytes Not Reportable 08/13/18 Unknown Helmet Cells Not Reportable 08/13/18 Unknown [place] Bodies Not Reportable 08/13/18 Unknown [place] Rings Not Reportable 08/13/18 Unknown [place] Cells Not Reportable 08/13/18 Unknown Bite Cells Not Reportable 08/13/18 Unknown Crenated Cell Not Reportable 08/13/18 Unknown Elliptocytes Not Reportable 08/13/18 Unknown Acanthocytes (Spur) Not Reportable 08/13/18 Unknown Rouleaux Not Reportable 08/13/18 Unknown Hemoglobin C Crystals Not Reportable 08/13/18 Unknown Schistocytes Not Reportable 08/13/18 Unknown Malaria parasites Not Reportable 08/13/18 Unknown [place] Bodies Not Reportable 08/13/18 Unknown Hem Pathologist Commnt No 08/13/18 Unknown PT 12.4 Sec. (12.2-14.9) 08/13/18 Unknown INR 0.87 (0.87-1.13) 08/13/18 Unknown APTT 22.3 Sec. (24.2-36.6) L 08/13/18 Unknown Activated Clotting Time 164 (74-137) H 08/13/18 21:32 Sodium 136 mmol/L (137-145) L 08/14/18 05:00 Potassium 4.9 mmol/L (3.6-5.0) D 08/14/18 05:00 Chloride 103.7 mmol/L (98-107) 08/14/18 05:00 Carbon Dioxide 21 mmol/L (22-30) L 08/14/18 05:00 Anion Gap 16 mmol/L 08/14/18 05:00 BUN 9 mg/dL (7-17) 08/14/18 05:00 Creatinine 0.5 mg/dL (0.7-1.2) L 08/14/18 05:00 Estimated GFR > 60 ml/min 08/14/18 05:00 BUN/Creatinine Ratio 18 % 08/14/18 05:00 Glucose 129 mg/dL (65-100) H 08/14/18 05:00 Calcium 7.9 mg/dL (8.4-10.2) L D 08/14/18 05:00 Total Creatine Kinase 835 units/L (30-135) H 08/14/18 05:00 CK-MB (CK-2) 90.6 ng/mL (0.0-4.0) H 08/14/18 05:00 CK-MB (CK-2) Rel Index 10.8 (0-4) H 08/14/18 05:00 Troponin T 0.363 ng/mL (0.00-0.029) H* D 08/14/18 05:00 Triglycerides 58 mg/dL (2-149) 08/13/18 18:34 Cholesterol 231 mg/dL (50-199) H 08/13/18 18:34 LDL Cholesterol Direct 201 mg/dL (50-130) H 08/13/18 18:34 HDL Cholesterol 39 mg/dL (40-59) L 08/13/18 18:34 Cholesterol/HDL Ratio 5.92 % 08/13/18 18:34 Blood Type A POSITIVE 08/13/18 18:34 Antibody Screen Negative 08/13/18 18:34 Nutrition/Malnutrition Assess - Dietary Evaluation Nutrition/Malnutrition Findings: Nutrition Notes Start: 08/15/18 12:08 Freq: Status: Active Protocol: Document 08/15/18 12:08 DEBORAH (Rec: 08/15/18 12:10 DEBORAH [email or web address]) Nutrition Notes Need for Assessment generated from: Low BMI Initial or Follow up Assessment Other Pertinent Diagnosis s/p cardiac arrest Current Diet Cardiac Labs/Tests Reviewed Pertinent Medications Amiodarone gtt Height 5 ft 8 in Weight 75.35 kg [place] Body Weight (kg) 63.63 BMI 25.2 Weight change and time frame Current wt obtained from bed scale Weight Status Appropriate Subjective/Other Information Pt screened for low BMI, however, current wt and physical appearance is or normal weight status. She is edentulous, but tolerates regular food. She says she will quit smoking; she requests heart-healthy diet information. She reports family hx of heart dz. Burn Absent Trauma Absent #1 Nutrition Diagnosis Food and nutrition-related knowledge deficit Etiology no prior exposure to heart healthy diet information As Evidenced by Signs and Symptoms pt requests diet education materials for eating the heart -healthy way Is patient on ventilator? No Is Patient Ambulatory and/or Out of Bed No REE-([facility]. Jeor-confined to bed) 9981.020 Calculation [facility]ations [facility] Additional Notes Pro needs 1.2-2g/k-151g/ day Fluid needs 1ml/kcal Nutrition Intervention Change Diet Order: Continue current diet order Goal #1 PO intake to meet at least 75% of energy and pro needs Anticipated Discharge Needs: Heart healthy diet Follow-Up By: 08/16/18 Additional Comments F/U: Heart-healthy diet education
--- NOTE | 2018-08-15 15:48 | Consultation ---
PULMONARY CRITICAL CARE CONSULTATION NOTE CONSULTING PHYSICIAN: Will have been Dr. Calderon, Emergency Room physician. REASON FOR CONSULTATION: ST elevation myocardial infarction. CHIEF COMPLAINT AND HISTORY OF PRESENT ILLNESS: Is as follows, the patient is a 63-year-old -[place]ron[place] female with past medical history significant amongst other things for diagnosis of tobacco abuse, a 20+ pack year tobacco smoking history. She came into the Emergency Room really with an acute encephalopathy. According to the Emergency staff that brought her in, she had been complaining of chest pain. It really had been going on for about a couple of days. She mentioned she felt it was gas pain. Family kept telling her to coming to the hospital, she never did. On the day she presented the intensity of the pain increased and she developed significant dyspnea. She had episodes of nausea. She had a few episodes of vomiting. In the ER, she was found to have essentially an ST elevation [place]. A code STEMI was called. By the time she made it to the ER, she became unresponsive and was found to be in a VFib arrest. ACLS protocol was started. She was shocked. There was a return of spontaneous circulation. Cardiology was notified and they took her into the Cath Room for an emergent cardiac catheterization for an acute inferior STEMI. She is status post primary PCI of the proximal and distal RCA with drug-eluting stents. She was then brought into the Critical Care Unit. When I stopped by to see her, she was resting in bed. I believe the sheath was still in. She denied any more chest pain. The pressure was gone. The sweating was gone. She felt so much better. That really is much of the history of presentation as I have. PAST MEDICAL HISTORY: Only tobacco use disorder as far as we can tell. PAST SURGICAL HISTORY: She had denied. MEDICATIONS: She was on at the time I stopped by to see were reviewed, pertinent medications include the following: Albuterol 2.5 mg nebulized q. 3 hours p.r.n., aspirin 325 mg p.o. daily, Lipitor 80 mg p.o. at bedtime, Plavix 75 mg p.o. daily, Pepcid 20 mg IV b.i.d., amiodarone drip was going at 1 mg per minute. She had lidocaine 5% transdermal every day scheduled, morphine sulfate 2 mg IV q. 4 hours p.r.n. moderate pain, Zofran 4 mg IV q. 8 hours p.r.n. nausea and vomiting. ALLERGIES: No known drug allergies. DIET: Petite lady, denies acute weight loss or gain in the preceding few weeks to months. FAMILY AND SOCIAL HISTORY: Lives in the family in the community, has a 20+ pack year tobacco smoking history. Denied alcohol or illicit drug use or abuse. She is . FAMILY HISTORY: Otherwise noncontributory. REVIEW OF SYSTEMS: No loss of consciousness. She did have a lethargy at presentation in the Emergency Room. No new onset seizures. No new onset focal weakness. Denied gross hematochezia or melena. Denies gross hematuria or dysuria. No hematemesis. No hemoptysis. She did have the episodes of nausea and vomiting. Denied heat or cold intolerance. Denies polydipsia and denied polyuria. Denied any new onset leg pain or swelling either unilaterally or bilaterally or any suggestion of deep venous thrombosis. Complete 13-system review of systems obtained. Pertinent positives and/or negatives as in body of history above, otherwise noncontributory. PHYSICAL EXAMINATION: VITAL SIGNS: At presentation, she was afebrile, temperature 97.6 degrees Fahrenheit, pulse 61, respiratory rate 19, first blood pressure that is recorded was 95/64, O2 sats were 97%, inspired oxygen concentration was not recorded. When I stopped by to see her, O2 sats were about 94% on room air. GENERAL: She is well built elderly looking -[place]ron[place] female, normocephalic, atraumatic, talking to me in full sentences without increased respiratory effort. HEAD, EYES, EARS, NOSE AND THROAT: She is anicteric. No conjunctival erythema. Oropharynx is moist. Oropharynx is a Mallampati #2. Grossly, no palpable lymph nodes in the supraclavicular or submandibular lymph node chains. No gross jugular venous distention, no thyromegaly. LUNGS: Auscultation of both lung reed inspiratory rales in the bases. No wheezing. HEART: Heart sounds 1 and 2 are heard. They were regular rate and rhythm at the time of my evaluation, without rubs or murmurs. ABDOMEN: Soft, full, bowel sounds are positive, nontender. No palpable hepatosplenomegaly. EXTREMITIES: Without overt digital clubbing or cyanosis. No pedal edema. Dorsalis pedis pulses are palpable bilaterally. NEUROLOGIC: Pupils were equal, round, about 4 mm, reactive to light. Extraocular muscle movements are intact. She moved all 4 extremities spontaneously. The skin was of normal turgor without overt cellulitis or rash. LABORATORY DATA: From my review are as follows: Admission white cell count 7.9, hemoglobin 13.3, hematocrit 38.7 and platelet 288. No band forms of significance. INR was 0.87. Serum sodium on presentation 139, potassium 3.9, chloride 99, bicarbonate 26, BUN 10, creatinine 0.9, glucose 119. CPK 191, CK-MB 11.6. Troponin 0.127. LDL cholesterol was 201, HDL 39. No microbiology studies. A chest x-ray was done. I have reviewed the chest x-ray. I have also reviewed the radiologist's interpretation, which describes no acute process. I will disagree a little bit with that. I think there are increased interstitial markings in the mix of her chronic and acute form. I think a mild interstitial edema, possible bibasilar infiltrates in particular in the right lower lobe laterally. Cardiovascular silhouette taken the hyperinflation into consideration is large. She does have cardiomegaly, no gross pneumothorax, no gross bony fractures that I can see. Perhaps some mild scoliosis. The film is rotated to the right. The cardiac catheterization report showed a preserved ejection fraction of 60-65% with inferior hypokinesis and left ventriculography. ASSESSMENT: 1. ST elevation myocardial infarction. 2. Tobacco use disorder. 3. Hyperlipidemia. 4. Elevated serum troponins. PLAN: I have taken a lot of time to explain to her that tobacco abstinence is absolutely indicated at this time. She is in agreement and she plans to actually quit smoking. For now, we will leave the temporary transvenous pacemaker in. She will be continued on antiplatelet therapy. We will continue the amiodarone drip per protocol for now. Transitioned to oral amiodarone once okay with Cardiology. We will continue her Plavix. I will put her on GI prophylaxis with Pepcid. Oxygen will be weaned to keep sats greater than or equal to about 94% acutely. Flu and pneumonia vaccination will be addressed per protocol. She is critically ill at this time at high risk including risk of from cardiovascular system decompensation. At this time, I spent about 35 minutes of critical care time without overlap excluding any procedural time that may be necessary. JOB# [id number] [facility]
[2018-08-15] MEDS: PEPCID PO SCH ×2 (18:02→21:44)
[2018-08-15] MEDS: LOPRESSOR PO SCH (21:44)
--- NOTE | 2018-08-16 09:59 | Progress Note ---
Subjective Date of service: 08/16/18 Principal diagnosis: STEMI Objective Vital Signs - 12hr 08/15/18 08/15/18 08/16/18 22:00 23:40 03:35 Temperature 98.5 F 98.9 F Pulse Rate 75 64 65 Pulse Rate [ Bilateral Femoral] Respiratory 16 16 Rate Blood Pressure 110/71 99/55 O2 Sat by Pulse 99 96 Oximetry 08/16/18 08/16/18 07:59 08:28 Temperature 98.0 F 98.0 F Pulse Rate Pulse Rate [ 81 Bilateral Femoral] Respiratory 18 18 Rate Blood Pressure 137/86 137/86 O2 Sat by Pulse 96 Oximetry CBC and BMP: 08/15/18 04:56 08/14/18 05:00 ABG, PT/INR, D-dimer: PT/INR, D-dimer PT 12.4 Sec. (12.2-14.9) 08/13/18 Unknown INR 0.87 (0.87-1.13) 08/13/18 Unknown Abnormal lab findings: Abnormal Labs 08/13/18 08/13/18 08/13/18 18:34 19:33 21:32 MCH Lymph % (Auto) Lymph # Seg Neutrophils % Seg Neuts % (Manual) Lymphocytes % (Manual) Eosinophils % (Manual) APTT Activated Clotting Time 202 H 164 H Sodium Carbon Dioxide Creatinine Glucose Calcium Total Creatine Kinase 191 H CK-MB (CK-2) 11.6 H CK-MB (CK-2) Rel Index 6.0 H Troponin T 0.127 H* D Cholesterol 231 H LDL Cholesterol Direct 201 H HDL Cholesterol 39 L 08/13/18 08/13/18 08/13/18 21:45 Unknown Unknown MCH 33 H Lymph % (Auto) Lymph # Seg Neutrophils % Seg Neuts % (Manual) 39.0 L Lymphocytes % (Manual) 49.0 H Eosinophils % (Manual) 5.0 H APTT 22.3 L Activated Clotting Time Sodium Carbon Dioxide Creatinine Glucose Calcium Total Creatine Kinase 354 H CK-MB (CK-2) 35.0 H CK-MB (CK-2) Rel Index 9.8 H Troponin T 0.255 H* D Cholesterol LDL Cholesterol Direct HDL Cholesterol 08/13/18 08/14/18 08/14/18 Unknown 05:00 05:00 MCH 33 H Lymph % (Auto) 10.9 L Lymph # 1.0 L Seg Neutrophils % 84.2 H Seg Neuts % (Manual) Lymphocytes % (Manual) Eosinophils % (Manual) APTT Activated Clotting Time Sodium 136 L Carbon Dioxide 21 L Creatinine 0.5 L Glucose 119 H 129 H Calcium 7.9 L D Total Creatine Kinase 835 H CK-MB (CK-2) 90.6 H CK-MB (CK-2) Rel Index 10.8 H Troponin T 0.363 H* D Cholesterol LDL Cholesterol Direct HDL Cholesterol
[2018-08-16] MEDS: PLAVIX PO SCH (10:43)
[2018-08-16] MEDS: LOPRESSOR PO SCH (10:43)
[2018-08-16] MEDS: PEPCID PO SCH (10:44)
[2018-08-16] MEDS: ECOTRIN PO SCH (10:44)
--- NOTE | 2018-08-16 11:08 | Progress Note ---
Assessment and Plan 63yo AAF: 1. Acute inferior STEMI complicated by VF arrest/hypotension/bradycardia * s/p primary pci of prox and distal rca w yue * s/p temp venous pcm 2. Tobacco abuse 3. Right hip arthritis Clinically doing well. Plan: tte reviewed - EF 50-55%. Cont ASA, plavix, lipitor, lopressor. currently stable cardiac status. pt may discharge home from cardiology standpoint. Follow up in our [place] office with Dr. Abelardo Mix on 08/26/2018 @ 2:30PM. The patient has been seen in conjunction with Dr. Ramires who agrees with the assessment and plan of care. Subjective Date of service: 08/16/18 Principal diagnosis: STEMI Interval history: pt resting in bed, no current cardiac complaints. has been ambulating around unit without difficulty. VSS. Objective Last Vital Signs Temp 98.0 F 08/16/18 08:28 Pulse 74 08/16/18 10:43 Resp 18 08/16/18 08:28 BP 103/67 08/16/18 10:43 Pulse Ox 96 08/16/18 08:28 - Physical Examination General: No Apparent Distress HEENT: Positive: PERRL, Normocephaly, Mucus Membranes Moist Neck: Positive: neck supple, trachea midline Cardiac: Positive: Reg Rate and Rhythm, S1/S2 Lungs: Positive: clear to auscultation Neuro: Positive: Grossly Intact Abdomen: Positive: Soft. Negative: Tender Skin: Negative: Rash, Wound Musculoskeletal: No Pain Extremities: Absent: edema - Imaging and Cardiology EKG: report reviewed, image reviewed Echo: report reviewed Cardiac cath: report reviewed - Telemetry EKG Rhythm: Sinus Rhythm
[2018-08-16 11:42] VITALS: BP 110/76
[2018-08-16] MEDS: LIDODERM 5% TD SCH (12:07)
--- NOTE | 2018-08-16 13:17 | Discharge Summary ---
Providers - Providers Date of Admission: 08/13/18 17:00 Date of discharge: 08/16/18 Attending physician: MEKHI HINOJOSA 08/13/18 Consult to Cardiac Rehabilitation [CONS] Routine Reason For Exam: post pci 08/13/18 15:46 Consult to Physician [CONS] Stat Comment: Consulting Provider: NIKKI ODEN Physician Instructions: Reason For Exam: stemi 08/13/18 15:53 Consult to Physician [CONS] Urgent Comment: Consulting Provider: SERGIO VALE Physician Instructions: Reason For Exam: stemi [facility] Condition: Critical Hospital course: Patient is a 63 yo presented to ED with chest pain. She was evaluated in ED found to have ST elevation on EKG. A Code STEMI was called. Pt subsequently became unresponsive and was found to be in V-Fib arrest. Patient managed as per ACLS protocol with return of perfusing cardiac rhythm. Cardiology team notified, and patient taken urgently to Cardiopulmonary Technologist for intervention and had PCI of the proximal and distal RCA with ANDRES placement. Patient also had bradycardia and was placed temporarily on pacemaker which was removed the following day.She improved, was re-evaluated on 08/16/18. Chest pain had resolved, no shortness of breath , so was discharged home. Total time spent on discharge, 32 mins Disposition: [id number] HOME UNDER HOME HLTH - Discharge Diagnoses (1) STEMI (ST elevation myocardial infarction) Status: Acute (2) CAD (coronary artery disease) Status: Acute (3) Cardiac arrest Status: Acute (4) Encephalopathy Status: Acute (5) Hyperlipidemia Status: Acute (6) Nicotine dependence Status: Acute Qualifiers: Nicotine product type: cigarettes Substance use status: uncomplicated Qualified Code(s): F17.210 - Nicotine dependence, cigarettes, uncomplicated Core Measure Documentation - Palliative Care Palliative Care/ Comfort Measures: Not Applicable - Core Measures Any of the following diagnoses?: acute NH - Acute NH Discharge Requirements Aspirin at discharge: Yes LAW/ARB for LVSD if EF <40%: Not Applicable Beta titus at discharge: Yes Statin for LDL = or >100 mg/dl on DC: Yes Exam - Constitutional Vitals: Temp Pulse Resp BP Pulse Ox 98.2 F 74 18 110/76 96 08/16/18 11:34 08/16/18 10:43 08/16/18 11:34 08/16/18 11:34 08/16/18 08:28 Plan Diet: low fat, low cholesterol, low salt Additional Instructions: 1.Follow up with PCP in 1 week. 2.Follow up with [facility] in 1 week. 3.Follow up with Dr. Nikki Oden on 08/26/18. 4.No strenous activity until cleared by cardiology Follow up with: NIKKI ODEN MD [Staff Physician] - 7 Days (Follow up in our [place] office with Dr. Abelardo Oden on 08/26/2018 @ 2:30PM. ) [facility]Primary Care Provider[facility] - 7 Days Forms: CardCath PCI D/C Instructions Prescriptions: Aspirin EC [Aspirin Enteric Coated TAB] 325 mg PO QDAY #30 tablet AtorvaSTATin [Lipitor] 80 mg PO QHS 30 Days tablet Clopidogrel [Plavix] 75 mg PO QDAY #30 tablet Famotidine [Pepcid] 20 mg PO BID 30 Days tablet Metoprolol [Lopressor TAB] 25 mg PO BID #60 tablet
== END 2018-08-16 16:04 | disposition home health service (06) | DRG 246 ==
LOC: ED 15:41 → CATH 16:42 → CC1 17:00 → 4A 08-15 14:29
PROVIDERS: ADMIT Internal Medicine; ATTEND Internal Medicine
PROC: 027035Z Dilation of Coronary Artery, One Artery with Two Drug-eluting Intraluminal Devices, Percutaneous Approach (ICD-10-PCS; principal; 2018-08-13)
PROC: B240ZZ3 Ultrasonography of Single Coronary Artery, Intravascular (ICD-10-PCS; 2018-08-13)
PROC: 4A023N7 Measurement of Cardiac Sampling and Pressure, Left Heart, Percutaneous Approach (ICD-10-PCS; 2018-08-13)
PROC: B2111ZZ Fluoroscopy of Multiple Coronary Arteries using Low Osmolar Contrast (ICD-10-PCS; 2018-08-13)
PROC: B2151ZZ Fluoroscopy of Left Heart using Low Osmolar Contrast (ICD-10-PCS; 2018-08-13)
PROC: 5A1223Z Performance of Cardiac Pacing, Continuous (ICD-10-PCS; 2018-08-13)
PROC: 3E0234Z Introduction of Serum, Toxoid and Vaccine into Muscle, Percutaneous Approach (ICD-10-PCS; 2018-08-14)
DX: I21.19 ST elevation (STEMI) myocardial infarction involving other coronary artery of inferior wall (principal); I46.9 Cardiac arrest, cause unspecified; I49.01 Ventricular fibrillation; G93.40 Encephalopathy, unspecified; E78.5 Hyperlipidemia, unspecified; M16.11 Unilateral primary osteoarthritis, right hip; E11.9 Type 2 diabetes mellitus without complications; F17.210 Nicotine dependence, cigarettes, uncomplicated; Z71.6 Tobacco abuse counseling; Z90.710 Acquired absence of both cervix and uterus; Z23 Encounter for immunization; Z79.84 Long term (current) use of oral hypoglycemic drugs
CPT/HCPCS: 33210; 36415; 71045; 80048; 80061; 82550; 82553; 82962; 84484; 85007; 85014; 85018; 85025; 85049; 85347; 85610; 85730; 86850; 86900; 86901; 90686; 90732; 92941; 92978; 93005; 93010; 93306; 93458; 94760; G0378; A9270-GY; C1725; C1753; C1769; C1874; C1887; C1894; C9606; J0282; J1265; J1644; J2270; J2405; J3010; J3246; J7030; J7040; J7060; Q9967

== ENCOUNTER 2021-12-21 12:36 | Emergency (ER) | payer OTHER, MEDICARE ==
[2021-12-21 14:26] LABS: Basophils # (Auto) 0.1 K/mm3 (0.0-0.1); Eosinophils % (Auto) 0.2 % (0.0-4.3); Hematocrit 45.2 % (30.3-42.9); Hemoglobin 14.4 gm/dl (10.1-14.3); Lymphocytes # (Auto) 2.2 K/mm3 (1.2-5.4); Lymphocytes % (Auto) 22.6 % (13.4-35.0); Mean Corpuscular HGB Conc 32 % (30-34); Mean Corpuscular Volume 93 fl (79-97); Monocytes # (Auto) 0.7 K/mm3 (0.0-0.8); Monocytes % (Auto) 7.1 % (0.0-7.3); Platelet Count 274 K/mm3 (140-440); Red Blood Count 4.86 M/mm3 (3.65-5.03); Red Cell Distribution Width 15.2 % (13.2-15.2)
[2021-12-21 14:39] LABS: Albumin 5.2 g/dL (3.9-5); Calcium 10.2 mg/dL (8.4-10.2)
[2021-12-21 14:53] LABS: Mucus,Urine 2+ /HPF
[2021-12-21 15:12] LABS: Bilirubin,Urine Negative (Negative); Blood,Urine Negative (Negative); Color,Urine Yellow (Yellow); Urobilinogen,Urine < 2.0 mg/dL (<2.0)
[2021-12-21] MEDS ORDERED: SODIUM CHLORIDE 0.9% 1000 ML 1,000 ML IV ONE (15:24)
[2021-12-21] MEDS ORDERED: MECLIZINE 25 MG TAB PO ONE (15:24)
[2021-12-21] MEDS ORDERED: ONDANSETRON 4 MG/2 ML INJ IV ONE (15:24)
[2021-12-21 16:12] LABS: INR 0.93 (0.87-1.13)
[2021-12-21 16:13] LABS: Partial Thromboplastin Time 24.2 Sec. (24.2-36.6)
--- NOTE | 2021-12-21 16:30 | Emergency Department Report ---
ED Dizziness HPI - General Chief Complaint: Nausea/Vomiting/Diarrhea Stated Complaint: FEELING FAINT/VOMITING/A/C HIGH Time Seen by Provider: 12/21/21 15:03 Source: patient Mode of arrival: Ambulatory Limitations: No Limitations - History of Present Illness Initial Comments: This is a 66-year-old female nontoxic, well nourished in appearance, no acute s igns of distress presents to the ED with 2 complaints: 1) nausea and vomiting and abdominal pain several days. Patient stated that nausea vomiting started first and dizziness after. Patient describes vomiting as food content and yellow gastric acid. Patient describes abdominal pain as cramping and aching with level of 8/10 epigastric area. Patient denies chest pain, short of breath, fever, hemoptysis, blood in stool, chills, headache, stiff neck, numbness or tingling. Patient denies any diarrhea or constipation. Denies any blood in stool. Patient denies any recent travels. 2) with c/o of dizziness that started this morning around 5 AM. Stated had an episode of left hand numbness and tingling and currently denies any symptoms. Patient denies any headache or head trauma. Patient stated the dizziness is worsened with position change. Patient denies any numbness, tingling, headache, stiff neck, chest pain, shortness of breathe, numbness or tingling. Denies any facial drooping or one sided weakness. Denies any visual changes or blurry vision. Denies any drug allergies. MD Complaint: dizziness, other (nausea vomiting with abdominl pain) -: days(s) Timing: gradual onset Description: lightheadedness History of Same: Yes History of Trauma: No Severity: mild Improves With: rest Worsens With: position Associated Symptoms: denies other symptoms (besides n/v and abdomen pain). denies: ataxia, chest pain, confusion, cough, diaphoresis, fever/chills, loss of appetite, malaise, rash, seizure, shortness of breath, syncope, weakness - Related Data Home Medications Medication Instructions Recorded Confirmed Last Taken traMADol ER 100 MG 100 mg PO Q6H PRN 08/13/18 08/13/18 2 Months Ago ~06/12/18 100 Previous Rx's Medication Instructions Recorded Last Taken Type Aspirin EC [Ecotrin] 325 mg PO QDAY #30 tablet 08/16/18 Unknown Rx AtorvaSTATin [Lipitor] 80 mg PO QHS 30 Days tablet 08/16/18 Unknown Rx Clopidogrel [Plavix] 75 mg PO QDAY #30 tablet 08/16/18 Unknown Rx Famotidine [Pepcid] 20 mg PO BID 30 Days tablet 08/16/18 Unknown Rx Metoprolol [Lopressor TAB] 25 mg PO BID #60 tablet 08/16/18 Unknown Rx Ondansetron [Zofran Odt] 4 mg PO Q8HR PRN #12 tab.rapdis 12/21/21 Unknown Rx Allergies Allergy/AdvReac Type Severity Reaction Status Date / Time No Known Allergies Allergy Verified 10/23/15 17:38 ED Review of Systems ROS: Stated complaint: FEELING FAINT/VOMITING/A/C HIGH Other details as noted in HPI Comment: All other systems reviewed and negative Constitutional: denies: chills, fever Eyes: denies: eye pain, eye discharge, vision change ENT: denies: ear pain, throat pain Respiratory: denies: cough, shortness of breath, wheezing Cardiovascular: denies: chest pain, palpitations Endocrine: no symptoms reported Gastrointestinal: abdominal pain, nausea, vomiting. denies: diarrhea, constipation, hematemesis, melena, hematochezia Genitourinary: denies: urgency, dysuria, discharge Musculoskeletal: denies: back pain, joint swelling, arthralgia Skin: denies: rash, lesions Neurological: other (dizziness). denies: headache, weakness, numbness, paresthesias, confusion, abnormal gait Psychiatric: denies: anxiety, depression Hematological/Lymphatic: denies: easy bleeding, easy bruising ED Past Medical Hx - Past Medical History Previous Medical History?: Yes Hx Congestive Heart Failure: No Hx Asthma: No Hx COPD: No Hx HIV: No Additional medical history: CAD - Surgical History Past Surgical History?: Yes Hx Coronary Stent: Yes Additional Surgical History: HYSTERECTOMY - Social History Smoking Status: Current Every Day Smoker Substance Use Type: None - Medications Home Medications: Home Medications Medication Instructions Recorded Confirmed Last Taken Type traMADol ER 100 MG 100 mg PO Q6H PRN 08/13/18 08/13/18 2 Months Ago History ~06/12/18 100 Aspirin EC [Ecotrin] 325 mg PO QDAY #30 tablet 08/16/18 Unknown Rx AtorvaSTATin [Lipitor] 80 mg PO QHS 30 Days tablet 08/16/18 Unknown Rx Clopidogrel [Plavix] 75 mg PO QDAY #30 tablet 08/16/18 Unknown Rx Famotidine [Pepcid] 20 mg PO BID 30 Days tablet 08/16/18 Unknown Rx Metoprolol [Lopressor TAB] 25 mg PO BID #60 tablet 08/16/18 Unknown Rx Ondansetron [Zofran Odt] 4 mg PO Q8HR PRN #12 tab.rapdis 12/21/21 Unknown Rx ED Physical Exam - General Limitations: No Limitations General appearance: alert, in no apparent distress - Head Head exam: Present: atraumatic, normocephalic - Eye Eye exam: Present: normal appearance, PERRL, EOMI - ENT ENT exam: Present: normal exam, normal orophraynx - Neck Neck exam: Present: normal inspection, full ROM. Absent: tenderness, meningismus, lymphadenopathy - Respiratory Respiratory exam: Present: normal lung sounds bilaterally. Absent: respiratory distress, wheezes, rales, rhonchi, stridor, chest wall tenderness, accessory muscle use, decreased breath sounds, prolonged expiratory - Cardiovascular Cardiovascular Exam: Present: regular rate, normal rhythm, normal heart sounds. Absent: bradycardia, tachycardia, irregular rhythm, systolic murmur, diastolic murmur, rubs, gallop - GI/Abdominal GI/Abdominal exam: Present: soft, tenderness (upper abdomen area), normal bowel sounds. Absent: distended, guarding, rebound, rigid, diminished bowel sounds - Extremities Exam Extremities exam: Present: normal inspection, full ROM, normal capillary refill. Absent: tenderness, joint swelling - Back Exam Back exam: Present: normal inspection, full ROM. Absent: tenderness, CVA tenderness (R), CVA tenderness (L), muscle spasm, paraspinal tenderness, vertebral tenderness, rash noted - Neurological Exam Neurological exam: Present: alert, oriented X3, normal gait - Expanded Neurological Exam Expanded Patient oriented to: Present: person, place, time Cranial nerves: EOM's Intact: Normal, Facial Sensation: Normal Cerebellar function: Finger to Nose: Normal Upper motor neuron: Pronator Drift: Normal, Sensory Extinction: Normal Motor strength exam: RUE: 5, LUE: 5, RLE: 5, LLE: 5 Best Eye Response (Drea): (4) open spontaneously Best Motor Response (Drea): (6) obeys commands Best Verbal Response (Drea): (5) oriented Stow Total: 15 - Psychiatric Psychiatric exam: Present: normal affect, normal mood - Skin Skin exam: Present: warm, dry, intact, normal color. Absent: rash - Other Other exam information: 0 points: NIH Stroke Scale ED Course Vital Signs 12/21/21 12/21/21 13:19 17:41 Temperature 98.5 F Pulse Rate 78 71 Respiratory 20 16 Rate Blood Pressure 120/72 129/69 [Right] O2 Sat by Pulse 98 98 Oximetry - Reevaluation(s) Reevaluation #1: 12/21/21 16:29 Patient is speaking in full sentences with no signs of distress noted. - Consultations Consultation #1: 12/21/21 19:45 Patient has been consulted with Dr. Robles about patient history, physical exam, and labs/imaging results and agrees to ED plan of care with consult to Vascular surgery. Consultation #2: 12/21/21 19:57 Patient has been consulted with Dr. Hendricks (vascular surgery) about patient history, physical exam, and labs/imaging results and patient can be discharged with outpatient follow-up. ED Medical Decision Making - Lab Data Result diagrams: 12/21/21 13:31 12/21/21 13:31 Lab Results 12/21/21 12/21/21 12/21/21 Range/Units 13:31 13:31 15:20 WBC 9.9 (4.5-11.0) K/mm3 RBC 4.86 (3.65-5.03) M/mm3 Hgb 14.4 H (10.1-14.3) gm/dl Hct 45.2 H (30.3-42.9) % MCV 93 (79-97) fl MCH 30 (28-32) pg MCHC 32 (30-34) % RDW 15.2 (13.2-15.2) % Plt Count 274 (140-440) K/mm3 Lymph % (Auto) 22.6 (13.4-35.0) % [place] % (Auto) 7.1 (0.0-7.3) % Eos % (Auto) 0.2 (0.0-4.3) % Baso % (Auto) 1.0 (0.0-1.8) % Lymph # (Auto) 2.2 (1.2-5.4) K/mm3 [place] # (Auto) 0.7 (0.0-0.8) K/mm3 Eos # (Auto) 0.0 (0.0-0.4) K/mm3 Baso # (Auto) 0.1 (0.0-0.1) K/mm3 Seg Neutrophils % 69.1 (40.0-70.0) % Seg Neutrophils # 6.8 (1.8-7.7) K/mm3 PT 13.7 (12.2-14.9) Sec. INR 0.93 (0.87-1.13) APTT 24.2 (24.2-36.6) Sec. Sodium 140 (137-145) mmol/L Potassium 4.6 (3.6-5.0) mmol/L Chloride 100.5 (98-107) mmol/L Carbon Dioxide 23 (22-30) mmol/L Anion Gap 21 mmol/L BUN 16 (7-17) mg/dL Creatinine 1.2 (0.6-1.2) mg/dL Estimated GFR 54 ml/min BUN/Creatinine Ratio 13 % Glucose 132 H (65-100) mg/dL Calcium 10.2 (8.4-10.2) mg/dL Total Bilirubin 0.50 (0.1-1.2) mg/dL AST 28 (5-40) units/L ALT 18 (7-56) units/L Alkaline Phosphatase 132 H (35-129) units/L Troponin T (0.00-0.029) ng/mL Total Protein 8.6 H (6.3-8.2) g/dL Albumin 5.2 H (3.9-5) g/dL Albumin/Globulin Ratio 1.5 % Lipase (13-60) units/L Urine Color (Yellow) Urine Turbidity (Clear) Urine pH (5.0-7.0) Ur Specific Mobile (1.003-1.030) Urine Protein (Negative) mg/dL Urine Glucose (UA) (Negative) mg/dL Urine Ketones (Negative) mg/dL Urine Blood (Negative) Urine Nitrite (Negative) Ur Reducing Substances Urine Bilirubin (Negative) Urine Ictotest Urine Urobilinogen (<2.0) mg/dL Ur Leukocyte Esterase (Negative) Urine WBC (Auto) (0.0-6.0) /HPF Urine RBC (Auto) (0.0-6.0) /HPF U Epithel Cells (Auto) (0-13.0) /HPF Urine Mucus /HPF 12/21/21 12/21/21 Range/Units 15:36 Unknown WBC (4.5-11.0) K/mm3 RBC (3.65-5.03) M/mm3 Hgb (10.1-14.3) gm/dl Hct (30.3-42.9) % MCV (79-97) fl MCH (28-32) pg MCHC (30-34) % RDW (13.2-15.2) % Plt Count (140-440) K/mm3 Lymph % (Auto) (13.4-35.0) % [place] % (Auto) (0.0-7.3) % Eos % (Auto) (0.0-4.3) % Baso % (Auto) (0.0-1.8) % Lymph # (Auto) (1.2-5.4) K/mm3 [place] # (Auto) (0.0-0.8) K/mm3 Eos # (Auto) (0.0-0.4) K/mm3 Baso # (Auto) (0.0-0.1) K/mm3 Seg Neutrophils % (40.0-70.0) % Seg Neutrophils # (1.8-7.7) K/mm3 PT (12.2-14.9) Sec. INR (0.87-1.13) APTT (24.2-36.6) Sec. Sodium (137-145) mmol/L Potassium (3.6-5.0) mmol/L Chloride (98-107) mmol/L Carbon Dioxide (22-30) mmol/L Anion Gap mmol/L BUN (7-17) mg/dL Creatinine (0.6-1.2) mg/dL Estimated GFR ml/min BUN/Creatinine Ratio % Glucose (65-100) mg/dL Calcium (8.4-10.2) mg/dL Total Bilirubin (0.1-1.2) mg/dL AST (5-40) units/L ALT (7-56) units/L Alkaline Phosphatase (35-129) units/L Troponin T < 0.010 (0.00-0.029) ng/mL Total Protein (6.3-8.2) g/dL Albumin (3.9-5) g/dL Albumin/Globulin Ratio % Lipase 23 (13-60) units/L Urine Color Yellow (Yellow) Urine Turbidity Clear (Clear) Urine pH 5.0 (5.0-7.0) Ur Specific Mobile 1.025 (1.003-1.030) Urine Protein 30 mg/dl (Negative) mg/dL Urine Glucose (UA) Negative (Negative) mg/dL Urine Ketones Trace (Negative) mg/dL Urine Blood Negative (Negative) Urine Nitrite Negative (Negative) Ur Reducing Substances Not Reportable Urine Bilirubin Negative (Negative) Urine Ictotest Not Reportable Urine Urobilinogen < 2.0 (<2.0) mg/dL Ur Leukocyte Esterase Negative (Negative) Urine WBC (Auto) 4.0 (0.0-6.0) /HPF Urine RBC (Auto) 3.0 (0.0-6.0) /HPF U Epithel Cells (Auto) 1.0 (0-13.0) /HPF Urine Mucus 2+ /HPF - EKG Data 12/21/21 15:13 Normal sinus rhythm at [address] or T wave abnormalities. Reviewed and signed by MD. - Radiology Data [facility] [address] [place] [address] Cat Scan Report Signed Patient: SAM VIEIRA MR#: [id number] [birth year] : 1955 Acct:[id number] Age/Sex: 66 / F ADM Date: 12/21/21 Loc: ED Attending Dr: Ordering Physician: ISHAN DUARTE NP Date of Service: 12/21/21 Procedure(s): CT head/brain wo con Accession Number(s): [id number] cc: ISHAN DUARTE NP CT HEAD WITHOUT CONTRAST INDICATION / CLINICAL INFORMATION: dizziness with abd pain and n/v. TECHNIQUE: All CT scans at this location are performed using CT dose reduction for ALARA by means of automated exposure control. COMPARISON: None available. FINDINGS: HEMORRHAGE: No evidence of intracranial hemorrhage or extra-axial fluid collection. EXTRA-AXIAL SPACES: Cortical sulci and sylvian fissures are normal in size and configuration for patient's age of 66 years. VENTRICULAR SYSTEM: Developmental asymmetry of the lateral ventricles is noted, right larger than left. Ventricles are otherwise normal in size and configuration. CEREBRAL PARENCHYMA: Periventricular and deep white matter lucency is observed. This is probably secondary to microvascular ischemic change. There is no indication of recent infarction. No areas of encephalomalacia are identified. MIDLINE SHIFT OR HERNIATION: There is no mass effect. CEREBELLUM / BRAINSTEM: Brainstem has an unremarkable appearance. Age related cerebellar atrophy is noted. MIDLINE STRUCTURES:Pituitary gland has an unremarkable appearance. No abnormalities are seen in the pineal region. INTRACRANIAL VESSELS:Calcified atherosclerotic plaque is present along the course of the cavernous segments of both internal carotid arteries. Similar findings are seen at the distal vertebral arteries. CRANIOCERVICAL JUNCTION:No significant abnormality. ORBITS: visualized portions of the orbits have an unremarkable appearance. SOFT TISSUES of HEAD: No significant abnormality. CALVARIUM: Evaluation of bone windows reveals no abnormalities. PARANASAL SINUSES / MASTOID AIR CELLS: Paranasal sinuses are free from inflammatory mucosal disease. Mastoid air cells are normally pneumatized. ADDITIONAL FINDINGS: None. IMPRESSION: 1. Matter lucency is noted in both cerebral hemispheres consistent with microvascular ischemic change. 2. No acute intracranial abnormality. Signer Name: Cristian Nazario MD Signed: 12/21/2021 7:29 PM Workstation Name: [id number] Transcribed By: Dictated By: Cristian Nazario MD Electronically Authenticated By: Cristian Nazario MD Signed Date/Time: 12/21/211928 DD/ 26 TD/TT: [facility] [address] [place] [address] Cat Scan Report Signed Patient: SAM VIEIRA MR#: [id number] [birth year] : 1955 Acct:[id number] Age/Sex: 66 / F ADM Date: 12/21/21 Loc: ED Attending Dr: Ordering Physician: ISHAN DUARTE NP Date of Service: 12/21/21 Procedure(s): CT abdomen pelvis w con Accession Number(s): [id number] cc: ISHAN DUARTE NP CT abdomen pelvis w con INDICATION / CLINICAL INFORMATION: dizziness with abd pain and n/v. TECHNIQUE: Axial CT imaging of abdomen and pelvis was obtained with 100 cc Omnipaque 300 IV contrast. Coronal and sagittal reformatted imaging obtained and reviewed. All CT scans at this location are performed using CT dose reduction for ALARA by means of automated exposure control. COMPARISON: None available. FINDINGS: The abdomen with IV contrast demonstrates normal appearance of the liver, spleen, pancreas, kidneys, and adrenal glands. Gallbladder is unremarkable. No biliary dilatation. If concern is the appearance of the aorta. There is an infrarenal aortic aneurysm which extends into both common iliac arteries. The maximum transverse diameter of the aortic aneurysm is 4.8 cm. There is a large amount of mural thrombus throughout the aneurysm. The right common iliac artery aneurysm has a transverse diameter of 3.3 cm. The left common iliac artery aneurysm has a transverse diameter of 2.6 cm. No evidence of rupture at this time. CT pelvis with contrast does not demonstrate any mass, free fluid, or focal inflammatory change. A normal appendix is present in the right mid abdomen in a retrocecal location. GI tract is within normal limits. Visualized lung bases do not demonstrate acute pulmonary or pleural disease. Review of osseous structures demonstrates right hip arthroplasty but no acute skeletal abnormality is noted. IMPRESSION: 1. There is infrarenal aortic aneurysm with maximum transverse diameter of 4.8 cm. Aneurysm extends into both common iliac arteries as outlined above. Large amount of mural thrombus is seen throughout the aneurysm. No evidence of rupture at this time. 2. No other significant finding within the abdomen or pelvis. 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 Signer Name: Shameka Bailey MD Signed: 12/21/2021 7:34 PM Workstation Name: [id number] Transcribed By: Dictated By: Shameka Bailey MD Electronically Authenticated By: Shameka Bailey MD Signed Date/Time: 12/21/211933 DD/ 26 TD/TT: - Medical Decision Making This is a 66-year-old female that presents with dizziness, abdominal pain, nausea, vomiting. Patient is stable and was examined by me. EKG is normal sinus rhythm with no ST abnormalities. Labs obtained. UA obtained. CT of abdomen and head obtained and dictated by the radiologist. Patient is notified of the report with no questions noted by the patient. Vital signs are stable prior to discharge. Patient received medical treatment in the ED which patient stated symptoms has resolved and subsided. Patient is neurologically stable. A by mouth challenge has been obtained and patient tolerated well with no nausea vomiting. Patient was also instructed to Follow-up with a primary care and vascular doctor in 2 days or if symptoms worsen and continue return to emergency room as soon as possible. At time of discharge, the patient does not seem toxic or ill in appearance. No acute signs of distress noted. Patient agrees to discharge treatment plan of care. No further questions noted by the patient. Critical care attestation.: If time is entered above; I have spent that time in minutes in the direct care of this critically ill patient, excluding procedure time. ED Disposition Clinical Impression: Dizziness Abdominal pain Qualifiers: Abdominal location: upper abdomen, unspecified Qualified Code(s): R10.10 - Upper abdominal pain, unspecified Aortic aneurysm Qualifiers: Aortic location: abdominal aorta Presence of rupture: without rupture Qualified Code(s): I71.4 - Abdominal aortic aneurysm, without rupture Nausea & vomiting Qualifiers: Vomiting type: unspecified Qualified Code(s): R11.2 - Nausea with vomiting, unspecified Disposition: 01 HOME / SELF CARE / HOMELESS Is pt being admited?: No Does the pt Need Aspirin: No Condition: Stable Instructions: Abdominal Aortic Aneurysm, [id number] Additional Instructions: Follow-up with a primary care and vascular doctor in 2 days or if symptoms worsen and continue return to emergency room as soon as possible. Prescriptions: Ondansetron [Zofran Odt] 4 mg PO Q8HR PRN #12 tab.rapdis PRN Reason: Nausea Referrals: ALONDRA POLLOCK MD [Referring] - 3-5 Days MCKINLEY MTZ MD [Staff Physician] - 3-5 Days LISANDRO SPENCER MD [Staff Physician] - 12/23/21 Time of Disposition: 20:06
[2021-12-21 17:43] VITALS: BP 129/69
--- NOTE | 2021-12-21 19:33 | Cat Scan Report ---
CT HEAD WITHOUT CONTRAST INDICATION / CLINICAL INFORMATION: dizziness with abd pain and n/v. TECHNIQUE: All CT scans at this location are performed using CT dose reduction for ALARA by means of automated e xposure control. COMPARISON: None available. FINDINGS: HEMORRHAGE: No evidence of intracranial hemorrhage or extra-axial fluid collection. EXTRA-AXIAL SPACES: Cortical sulci and sylvian fissures are normal in size and configuration for ernesto ent's age of 66 years. VENTRICULAR SYSTEM: Developmental asymmetry of the lateral ventricles is noted, right larger than lef t. Ventricles are otherwise normal in size and configuration. CEREBRAL PARENCHYMA: Periventricular and deep white matter lucency is observed. This is probably seco ndary to microvascular ischemic change. There is no indication of recent infarction. No areas of ence phalomalacia are identified. MIDLINE SHIFT OR HERNIATION: There is no mass effect. CEREBELLUM / BRAINSTEM: Brainstem has an unremarkable appearance. Age related cerebellar atrophy is n oted. MIDLINE STRUCTURES:Pituitary gland has an unremarkable appearance. No abnormalities are seen in the p ineal region. INTRACRANIAL VESSELS:Calcified atherosclerotic plaque is present along the course of the cavernous se gments of both internal carotid arteries. Similar findings are seen at the distal vertebral arteries. CRANIOCERVICAL JUNCTION:No significant abnormality. ORBITS: visualized portions of the orbits have an unremarkable appearance. SOFT TISSUES of HEAD: No significant abnormality. CALVARIUM: Evaluation of bone windows reveals no abnormalities. PARANASAL SINUSES / MASTOID AIR CELLS: Paranasal sinuses are free from inflammatory mucosal disease. Mastoid air cells are normally pneumatized. ADDITIONAL FINDINGS: None. IMPRESSION: 1. Matter lucency is noted in both cerebral hemispheres consistent with microvascular ischemic change . 2. No acute intracranial abnormality. Signer Name: Cristian Nazario MD Signed: 12/21/2021 7:29 PM Workstation Name: [id number]
--- NOTE | 2021-12-21 19:38 | Cat Scan Report ---
CT abdomen pelvis w con INDICATION / CLINICAL INFORMATION: dizziness with abd pain and n/v. TECHNIQUE: Axial CT imaging of abdomen and pelvis was obtained with 100 cc Omnipaque 300 IV contrast. Coronal an d sagittal reformatted imaging obtained and reviewed. All CT scans at this location are performed us ing CT dose reduction for ALARA by means of automated exposure control. COMPARISON: None available. FINDINGS: The abdomen with IV contrast demonstrates normal appearance of the liver, spleen, pancreas, kidneys, and adrenal glands. Gallbladder is unremarkable. No biliary dilatation. If concern is the appearance of the aorta. There is an infrarenal aortic aneurysm which extends into both common iliac arteries. The maximum transverse diameter of the aortic aneurysm is 4.8 cm. There i s a large amount of mural thrombus throughout the aneurysm. 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 The left common iliac artery aneurysm has a transverse diameter of 2.6 cm. No evidence of rupture at this time. CT pelvis with contrast does not demonstrate any mass, free fluid, or focal inflammatory change. A no rmal appendix is present in the right mid abdomen in a retrocecal location. GI tract is within normal limits. Visualized lung bases do not demonstrate acute pulmonary or pleural disease. Review of osseous structures demonstrates right hip arthroplasty but no acute skeletal abnormality is noted. IMPRESSION: 1. There is infrarenal aortic aneurysm with maximum transverse diameter of 4.8 cm. Aneurysm extends i nto both common iliac arteries as outlined above. Large amount of mural thrombus is seen throughout t he aneurysm. No evidence of rupture at this time. 2. No other significant finding within the abdomen or pelvis. CRITICAL RESULT: Time of Discovery: 1828 hours CLAIMS ASSISTANT Time of Communication: 1834 hours CLAIMS ASSISTANT Licensed Practitioner Receiving Report: Ishan Whelan Read Back Performed: Yes. Signer Name: Shameka Bailey MD Signed: 12/21/2021 7:34 PM Workstation Name: [id number]
--- NOTE | 2021-12-22 13:31 | Electrocardiograph Report ---
Test Date: 2021-12-21 Test Time: 15:13:36 Pat Name: SAM VIEIRA Department: Room: Gender: F License Examiner: KORI : 1955 Requested By: JAZ DUARTE Order Number: [id number] Reading MD: Shaji Avery Measurements Intervals [place] Rate: 75 P: 64 PA: 215 QRS: 56 QRSD: 87 T: QT: 406 QTc: 453 Interpretive Statements Sinus rhythm Borderline prolonged PA interval No previous ECG available for comparison Electronically Signed On 12-22-2021 13:31:37 EDT by Shaji Avery
== END 2021-12-21 21:24 | disposition home or self-care (01) ==
LOC: ED 12:36
DX: I71.9 Aortic aneurysm of unspecified site, without rupture (principal); R11.2 Nausea with vomiting, unspecified; R10.9 Unspecified abdominal pain; R42 Dizziness and giddiness; F17.200 Nicotine dependence, unspecified, uncomplicated; Z98.890 Other specified postprocedural states; Z79.899 Other long term (current) drug therapy
CPT/HCPCS: 36415; 70450; 74177; 80053; 81001; 83690; 84484; 85025; 85610; 85730; 93005; 96361; 96374; 99284; J2405; J7030; Q9967